=== PATIENT | male | born 1960 | race Caucasian/White ===

== ENCOUNTER → 2018-08-16 10:26 | Outpatient (CLI) | payer OTHER, SELFPAY ==
[2018-08-16 11:18] LABS: BUN Creatinine Ratio 22.2 (6-22); Blood Urea Nitrogen 20 mg/dL (9-20); Calcium 9.7 mg/dL (8.4-10.2); Carbon Dioxide 30 mmol/L (22-32); Chloride 102 mmol/L (98-107); Estimated Glomerular Filt Rate > 60.0 mL/min (>60); Glucose 103 mg/dL (70-100); HEMOLYSIS < 15 (0-50); Potassium 4.2 mmol/L (3.4-5.1); Sodium 142 mmol/L (137-145)
== END ==
PROVIDERS: Visit Provider Internal Medicine
DX: I10 Essential (primary) hypertension (principal)
CPT/HCPCS: 36415; 80048

== ENCOUNTER → 2019-01-12 10:46 | Outpatient (CLI) | payer OTHER, SELFPAY ==
[2019-01-12 12:26] LABS: Add Manual Diff / Slide Review NO; Basophils Absolute Auto 0 /uL (0-100); Basophils Percent Auto 0.7 % (0-2); Eosinophils Absolute Auto 100 /uL (0-450); Eosinophils Percent Auto 1.3 % (2-4); Hematocrit 42.6 % (41-53); Hemoglobin 14.6 g/dL (13.5-17.5); Lymphocytes Absolute Auto 1000 /uL (1100-4500); Lymphocytes Percent Auto 22.6 % (25-40); Mean Corpuscular HGB Conc 34.3 % (30-36); Mean Corpuscular Hemoglobin 33.1 PG (26-34); Mean Corpuscular Volume 96.6 fL (80-100); Monocytes Absolute Auto 500 /uL (0-900); Monocytes Percent Auto 10.9 % (3-14); Neutrophils Absolute Auto 2700 /uL (1500-7000); Neutrophils Percent Auto 64.5 % (50-75); Platelet Count 379 X10^3/uL (150-400); Red Blood Cell Count 4.41 X10^6/uL (4.5-5.9); Red Cell Distribution Width 13.1 % (11.6-14.8); White Blood Cell Count 4.2 X10^3/uL (4.5-11.0)
[2019-01-12 12:44] LABS: Alanine Aminotransferase 29 IU/L (21-72); Albumin 4.7 g/dL (3.5-5.0); Albumin Globulin Ratio 1.8 (1.0-2.8); Alkaline Phosphatase 51 U/L (38-126); Aspartate Aminotransferase 32 IU/L (17-59); BUN Creatinine Ratio 15.7 (6-22); Bilirubin Total 0.8 mg/dL (0.2-1.3); Blood Urea Nitrogen 11 mg/dL (9-20); Calcium 9.2 mg/dL (8.4-10.2); Carbon Dioxide 29 mmol/L (22-32); Chloride 92 mmol/L (98-107); Cholesterol 180 mg/dL (140-199); Estimated Glomerular Filt Rate > 60.0 mL/min (>60); Globulin 2.6 g/dL (1.7-4.1); Glucose 92 mg/dL (70-100); HDL Cholesterol 85 mg/dL (40-60); HEMOLYSIS < 15 (0-50); LDL Cholesterol Calculated 87 mg/dL (<100); Potassium 3.9 mmol/L (3.4-5.1); Sodium 132 mmol/L (137-145); Total Protein 7.3 g/dL (6.3-8.2); Triglycerides 40 mg/dL (35-150)
[2019-01-12 13:02] LABS: Hemoglobin A1C% w Est Avg Glu 5.1 % (4.0-6.0)
== END ==
PROVIDERS: Family Provider Family Medicine; PCP Family Medicine; Visit Provider Psychiatry & Neurology Psychiatry
DX: Z79.899 Other long term (current) drug therapy (principal)
CPT/HCPCS: 36415; 80053; 80061; 80164; 83036; 85025

== ENCOUNTER → 2021-12-15 09:23 | Outpatient (CLI) | payer OTHER, SELFPAY ==
[2021-12-15 11:17] LABS: Hematocrit 44.8 % (41-53); Hemoglobin 15.5 g/dL (13.5-17.5); Mean Corpuscular HGB Conc 34.6 % (30-36); Mean Corpuscular Hemoglobin 33.3 PG (26-34); Platelet Count 457 X10^3/uL (150-400); Red Blood Cell Count 4.67 X10^6/uL (4.5-5.9); White Blood Cell Count 5.6 X10^3/uL (4.5-11.0)
[2021-12-15 11:39] LABS: Hemoglobin A1C% w Est Avg Glu 5.3 % (4.0-6.0)
[2021-12-15 11:55] LABS: Alanine Aminotransferase 19 IU/L (<50); Albumin Globulin Ratio 1.5 (1.0-2.8); Alkaline Phosphatase 78 U/L (38-126); Aspartate Aminotransferase 31 IU/L (17-59); Bilirubin Total 0.9 mg/dL (0.2-1.3); Blood Urea Nitrogen 17 mg/dL (9-20); Calcium 10.1 mg/dL (8.4-10.2); Carbon Dioxide 26 mmol/L (22-32); Chloride 104 mmol/L (98-107); Cholesterol 276 mg/dL (140-199); Estimated Glomerular Filt Rate > 60.0 mL/min (>60); Globulin 3.3 g/dL (1.7-4.1); Glucose 92 mg/dL (80-110); HDL Cholesterol 73 mg/dL (40-60); HEMOLYSIS < 15 (0-50); LDL Cholesterol Calculated 180 mg/dL (<100); Potassium 4.1 mmol/L (3.4-5.1); Sodium 140 mmol/L (137-145); Total Protein 8.3 g/dL (6.3-8.2); Triglycerides 113 mg/dL (35-150)
[2021-12-15 11:59] LABS: Microalbumin Urine Random 3.6 mg/dL (0-1.6)
[2021-12-15 12:15] LABS: Free T3, Triiodothyronine Free 3.85 pg/mL (2.77-5.27); Free T4, Direct Thyroxine 1.06 ng/dL (0.78-2.19)
[2021-12-15 12:25] LABS: Prostate Specific Antigen 1.74 ng/mL (0.10-4.00)
[2021-12-15 12:28] LABS: Thyroid Stimulating Hormone 1.69 uIU/mL (0.47-4.68)
== END ==
PROVIDERS: PCP Nurse Practitioner; Referring Provider Nurse Practitioner; Visit Provider Nurse Practitioner
DX: Z00.00 Encounter for general adult medical examination without abnormal findings (principal); I10 Essential (primary) hypertension
CPT/HCPCS: 36415; 80053; 80061; 82043; 82570; 83036; 84153; 84439; 84443; 84481; 85027

== ENCOUNTER 2021-12-29 10:30 | Outpatient (RCR) | payer OTHER, SELFPAY ==
--- NOTE | 2021-12-21 18:23 | PT.OIE ---
Current Diagnoses Pain in right shoulder (12/21/21) Pain in left shoulder (12/21/21) Abnormal posture (12/21/21) Weakness (12/21/21) Past Medical History (Last Updated 12/16/21 @ 14:22 by RORY Case) Colon cancer screening Left elbow pain Strain of muscle(s) and tendon(s) of the rotator cuff of left shoulder, sequela Visit Care Team Role Provider Type RORY Case Attending Provider Advanced Front Office Associate Family Provider Primary Care Provider Referring Provider Specialty: Family Practice Address: [address] [place] [address] Email: [email or web address] Physical Therapy Initial Evaluation PT-OP-A Visit Information Start: 12/17/21 19:01 Freq: Status: Active Protocol: Document 12/21/21 09:44 [facility] (Rec: 12/21/21 12:23 [facility] [id number]) Out-Patient Physical Therapy Visit Information Visit Information Visit Type Initial Evaluation Visit Start Time 10:36 Visit Stop Time 11:20 Total Visit Minutes 44 Visit Number 1 Number of MENTAL HEALTH PROGRAM DIRECTOR Visits 0 PT-OP-B Current Condition Start: 12/17/21 19:01 Freq: Status: Active Protocol: Document 12/21/21 09:44 [facility] (Rec: 12/21/21 12:23 [facility] [id number]) Current Condition History of Current Condition Current Complaints B shoulder pain History of Current Condition Pt reports B shoulder pain and notes he has had 2 cortizone shots in L shoulder and one in L elbow. He thinks his R shoulder started hurting from throwing rocks for puppy. 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 he would breath on his R side d/t his L shoulder. He has been running and hiking mostly and avoiding activities that require UEs. Pt had X-ray w/ ortho about 2 years ago that said no arthritis. He has not done PT before or any other treatments for the shoulder. R shouler started about 2-3 months ago. He starts fishing in Aug and went almost a month straight and started then and then got worse in Sep. L shoulder pain has been bothering him for 5 years. He does not know what made it worse recently. Its been about 1.5 years since he did any activities that stress the shoulder d/t pain. L elbow pain has been okay since the injection 2 years ago. R elbow is sometimes sore. Denies numbness or tingling in UEs. 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 He uses R arm on throttle when driving and it hurts. Pt reports R shoulder is his pain issue. Pt reports no nec pain , just tightness. Pt reports he has been surfing recently and that has been tough on his shoulders, but hasn't been this year d/t R shoulder starting. Prior Treatments and Tests Xrays, cortizone shots on L shoulder & L elbow Future Testing and Treatments Planned plans to call to schedule w/ ortho Treatment Goals Patient/Caregiver Goals Return to UE supports (mtn biking, climbing, SUP & swim), PT-OP-C Subjective Start: 12/17/21 19:01 Freq: Status: Active Protocol: Document 12/21/21 09:44 [facility] ([facility] 12[facility]21/21 12[facility]23 [id number] Patient Questionnaires Quick Dash- Upper Extremity Quick Dash UE Score 40.9 OP-PT Pain Assessment Location B shoulders Pain Location Details post and lat B shoulder Intensity 3 Scale Used worst 7 Description Sharp,With Movement Frequency Constant Other Pain Aggravating Factors Driving boat, flex/abd, getting coat on, throwing rocks, UE sports Pain Alleviating Factors Heat PT-OP-F Manual Assessment Start: 12/17/21 19:01 Freq: Status: Active Protocol: Document 12/21/21 09:44 [facility] (Rec: 12/21/21 12:23 [facility] [id number]) Manual Assessments Soft Tissue Assessment Soft Tissue Mobility Assessment tenderness mild supraspinatus tendon, UT & LS tight Joint Mobility Assessment Joint Mobility Assessment B scap winging & fwd shoulders & head PT-OP-J Posture/Palpation/Skin Start: 12/17/21 19:01 Freq: Status: Active Protocol: Document 12/21/21 09:44 [facility] (Rec: 12/21/21 12:23 [facility] [id number]) Posture Evaluation Kamran Postural Classification System Elbow Flexion Test 0 PT-OP-K Range of Motion Start: 12/17/21 19:01 Freq: Status: Active Protocol: Document 12/21/21 09:44 [facility] (Rec: 12/21/21 12:23 [facility] [id number]) Shoulder Goniometric Range of Motion Shoulder Right Active Flexion 150 Extension 68 Abduction 165 External Rotation at 90 degrees 95 Abduction External Rotation at 0 degrees Abduction 79 Internal Rotation Behind Back (text) T9 Comments pain flex, abd, ERs, IR behind back Left Active Flexion 145 Extension 68 Abduction 173 External Rotation at 90 degrees 97 Abduction External Rotation at 0 degrees Abduction 75 Internal Rotation Behind Back (text) T12 Comments some discomfort w/rotations PT-OP-L Special Tests Start: 12/17/21 19:01 Freq: Status: Active Protocol: Document 12/21/21 09:44 [facility] (Rec: 12/21/21 12:23 [facility] [id number]) Special Tests Shoulder Special Tests Sulcus Test Results neg B Speed's Biceps Test Results neg L, pain R w/both obiens and speeds Neer Impingement Test Results positive R, neg L [place] Test Test Results neg L, pain R w/both obiens and speeds Goel Luisito Impingement Test Results positive R, neg L Empty Can Test Results neg L, pain R AC Joint Compression Test Results neg B PT-OP-M Strength Start: 12/17/21 19:01 Freq: Status: Active Protocol: Document 12/21/21 09:44 [facility] (Rec: 12/21/21 12:23 [facility] [id number]) Shoulder Strength Shoulder Manual Muscle Testing Right Flexion 4- Good- Extension 4 Good Abduction (C5) 4- Good- External Rotation 4- Good- Internal Rotation 4 Good Left Flexion 4 Good Extension 4 Good Abduction (C5) 4 Good External Rotation 4- Good- Internal Rotation 4+ Good+ PT-OP-Q Treatments Start: 12/17/21 19:01 Freq: Status: Active Protocol: Document 12/21/21 09:44 [facility] (Rec: 12/21/21 12:23 [facility] [id number]) Therapeutic Exercises Standing Exercises ER Side bilateral Equipment Used L1 Reps/Minutes 2x10 Ext Side bilateral Equipment Used L2 Reps/Minutes 2x10 PT-OP-T Assessment and Plan Start: 12/17/21 19:01 Freq: Status: Active Protocol: Document 12/21/21 09:44 [facility] (Rec: 12/21/21 12:23 [facility] [id number]) Physical Therapy Assessment Rehab Potential Rehabilitation Potential Good Evaluation Complexity Number of Personal Factors/Comorbidities 3 or More Number of Body Systems Impaired 4 or More Clinical Presentation at Evaluation Evolving Impairments Impairments Activity Tolerance,Functional Activities,Functional Mobility ,Pain,Posture,ROM,Soft Tissue Mobility,Strength Goals ROM Halfway Goal (LTG) Pt will be able to go through all B shoulder ROM w/o inc pain. LTG Duration 02/18/22 strength Short Term Goal (STG) Pt will be indep w/HEP for shoulder/cervical/core ROM & stength. STG Duration 01/18/22 Halfway Goal (LTG) Pt will have at least 3/5 EFT and 5/5 BUE MMT to show improved stability and strength in order to allow pt to do typical sporting activities. LTG Duration 02/18/22 pain Impairment 3/10 pain at rest Short Term Goal (STG) Pt will report no pain at rest STG Duration 01/18/22 Cutting Tool Sharpener Goal (LTG) Pt will be able to drive the boat, do UE dressing, UE sports and throwing for dog w/ o inc pain. LTG Duration 02/18/22 quick dash Impairment 40.9 Short Term Goal (STG) Pt will improve quick dash score to no higher than 30 to show improved functional ability. STG Duration Halfway Goal (LTG) Pt will improve quick dash score to no higher than 10 to show improved functional ability. LTG Duration 02/18/22 Assessment Summary Assessment Pt presents w/recent R shoulder pain in past couple of months and chronic (years ago starting) L shoulder pain that limits his ability to do work, ADLs, and recreational activties without increased pain. His ROM has minor limits , but R shoulder ROM in most planes is painful and pt has weakness w/BUE strength testing and EFT w/pain during MMT. 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 He would benefit from skilled PT to work on B shoulder stability, thoracic mobility and stability, ROM and improve movement mechanics to dec pain. Physical Therapy Plan Frequency and Duration Frequency of Treatment 1-2x/week Duration of Treatment 2 months Plan of Care Start Date 12/21/21 Plan of Care End Date 02/18/22 Therapeutic Interventions Therapeutic Interventions Aquatic Therapy,Home Exercise Program,Joint Mobilizations, Manual Therapy,Neuromuscular Re-education,Patient/Caregiver Education,Self-Care/Home Management,Soft Tissue Mobilization,Taping, Therapeutic Activities, Therapeutic Exercises Modalities Cold Pack/Ice Massage,Electric Stimulation,Hot Packs, Infrared Therapy,Ultrasound Next Visit Focus/Plan Next Note Type Treatment Note Next Visit Plan review exercises from last session, check neural tension, add wall posture & prone Habd & 90/90 ER, PNF of scap, STM to UT/LS, joint mobs R shoulder
--- NOTE | 2021-12-21 18:23 | PT.OPPOC ---
Physical, Occupational & Speech Therapy At [facility] Current Diagnoses Pain in right shoulder (12/21/21) Pain in left shoulder (12/21/21) Abnormal posture (12/21/21) Weakness (12/21/21) Visit Care Team Role Provider Type RORY Case Attending Provider Advanced Risk Consultant Family Provider Primary Care Provider Referring Provider Specialty: [facility] Address: [address] [place] [address], [facility] Email: [email or web address] Plan Of Care PT-OP-T Assessment and Plan Start: 12/17/21 19:01 Freq: Status: Active Protocol: Document 12/21/21 09:44 [facility] (Rec: 12/21/21 12:23 [facility] [id number]) Physical Therapy Assessment Rehab Potential Rehabilitation Potential Good Evaluation Complexity Number of Personal Factors/Comorbidities 3 or More Number of Body Systems Impaired 4 or More Clinical Presentation at Evaluation Evolving Impairments Impairments Activity Tolerance,Functional Activities,Functional Mobility ,Pain,Posture,ROM,Soft Tissue Mobility,Strength Goals ROM Detention Goal (LTG) Pt will be able to go through all B shoulder ROM w/o inc pain. LTG Duration 02/18/22 strength Short Term Goal (STG) Pt will be indep w/HEP for shoulder/cervical/core ROM & stength. STG Duration 01/18/22 Detention Goal (LTG) Pt will have at least 3/5 EFT and 5/5 BUE MMT to show improved stability and strength in order to allow pt to do typical sporting activities. LTG Duration 02/18/22 pain Impairment 3/10 pain at rest Short Term Goal (STG) Pt will report no pain at rest STG Duration 01/18/22 Detention Goal (LTG) Pt will be able to drive the boat, do UE dressing, UE sports and throwing for dog w/ o inc pain. LTG Duration 02/18/22 quick dash Impairment 40.9 Short Term Goal (STG) Pt will improve quick dash score to no higher than 30 to show improved functional ability. STG Duration Wind Energy Mechanic Goal (LTG) Pt will improve quick dash score to no higher than 10 to show improved functional ability. LTG Duration 02/18/22 Assessment Summary Assessment Pt presents w/recent R shoulder pain in past couple of months and chronic (years ago starting) L shoulder pain that limits his ability to do work, ADLs, and recreational activties without increased pain. His ROM has minor limits , but R shoulder ROM in most planes is painful and pt has weakness w/BUE strength testing and EFT w/pain during MMT. 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 He would benefit from skilled PT to work on B shoulder stability, thoracic mobility and stability, ROM and improve movement mechanics to dec pain. Physical Therapy Plan Frequency and Duration Frequency of Treatment 1-2x/week Duration of Treatment 2 months Plan of Care Start Date 12/21/21 Plan of Care End Date 02/18/22 Therapeutic Interventions Therapeutic Interventions Aquatic Therapy,Home Exercise Program,Joint Mobilizations, Manual Therapy,Neuromuscular Re-education,Patient/Caregiver Education,Self-Care/Home Management,Soft Tissue Mobilization,Taping, Therapeutic Activities, Therapeutic Exercises Modalities Cold Pack/Ice Massage,Electric Stimulation,Hot Packs, Infrared Therapy,Ultrasound Next Visit Focus/Plan Next Note Type Treatment Note Next Visit Plan review exercises from last session, check neural tension, add wall posture & prone Habd & 90/90 ER, PNF of scap, STM to UT/LS, joint mobs R shoulder Plan of Care Dates Plan of Care Start Date 12/21/21 Plan of Care End Date 02/18/22 Electronically Signed by: Milagros Aparicio, PT 12/21/21 [id number] Please Sign and Return: I have reviewed this Plan of Care and certify that the skilled therapy services above are required to meet the patient?s needs. Physician Signature Date Printed Name and Credentials Clinical Instructor Signature Printed Name and Credentials
--- NOTE | 2021-12-24 12:30 | PT.OTN ---
Current Diagnoses Pain in right shoulder (12/24/21) Pain in left shoulder (12/24/21) Abnormal posture (12/24/21) Weakness (12/24/21) Physical Therapy Treatment Note PT-OP-A Visit Information Start: 12/17/21 19:01 Freq: Status: Active Protocol: Document 12/24/21 10:34 [facility] (Rec: 12/24/21 12:29 [facility] [id number]) Out-Patient Physical Therapy Visit Information Visit Information Visit Type Treatment Note Visit Start Time 10:35 Visit Stop Time 11:17 Total Visit Minutes 42 Visit Number 2 Number of HYPO SPLASHER Visits 0 PT-OP-B Current Condition Start: 12/17/21 19:01 Freq: Status: Active Protocol: Document 12/21/21 09:44 [facility] (Rec: 12/21/21 12:23 [facility] [id number]) Current Condition History of Current Condition Current Complaints B shoulder pain History of Current Condition Pt reports B shoulder pain and notes he has had 2 cortizone shots in L shoulder and one in L elbow. He thinks his R shoulder started hurting from throwing rocks for puppy. 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 he would breath on his R side d/t his L shoulder. He has been running and hiking mostly and avoiding activities that require UEs. Pt had X-ray w/ ortho about 2 years ago that said no arthritis. He has not done PT before or any other treatments for the shoulder. R shouler started about 2-3 months ago. He starts fishing in Aug and went almost a month straight and started then and then got worse in Sep. L shoulder pain has been bothering him for 5 years. He does not know what made it worse recently. Its been about 1.5 years since he did any activities that stress the shoulder d/t pain. L elbow pain has been okay since the injection 2 years ago. R elbow is sometimes sore. Denies numbness or tingling in UEs. 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 He uses R arm on throttle when driving and it hurts. Pt reports R shoulder is his pain issue. Pt reports no nec pain , just tightness. Pt reports he has been surfing recently and that has been tough on his shoulders, but hasn't been this year d/t R shoulder starting. Prior Treatments and Tests Xrays, cortizone shots on L shoulder & L elbow Future Testing and Treatments Planned plans to call to schedule w/ ortho Treatment Goals Patient/Caregiver Goals Return to UE supports (mtn biking, climbing, SUP & swim), PT-OP-C Subjective Start: 12/17/21 19:01 Freq: Status: Active Protocol: Document 12/24/21 10:34 [facility] (Rec: 12/24/21 12:29 [facility] [id number]) OP-PT Subjective Patient Comments Patient Comments Pt notes compliance w/HEP. Notes R shoulder is sore PT-OP-F Manual Assessment Start: 12/17/21 19:01 Freq: Status: Active Protocol: Document 12/21/21 09:44 [facility] (Rec: 12/21/21 12:23 [facility] [id number]) Manual Assessments Soft Tissue Assessment Soft Tissue Mobility Assessment tenderness mild supraspinatus tendon, UT & LS tight Joint Mobility Assessment Joint Mobility Assessment B scap winging & fwd shoulders & head PT-OP-J Posture/Palpation/Skin Start: 12/17/21 19:01 Freq: Status: Active Protocol: Document 12/21/21 09:44 [facility] (Rec: 12/21/21 12:23 [facility] [id number]) Posture Evaluation Kamran Postural Classification System Elbow Flexion Test 0 PT-OP-K Range of Motion Start: 12/17/21 19:01 Freq: Status: Active Protocol: Document 12/21/21 09:44 [facility] (Rec: 12/21/21 12:23 [facility] [id number]) Shoulder Goniometric Range of Motion Shoulder Right Active Flexion 150 Extension 68 Abduction 165 External Rotation at 90 degrees 95 Abduction External Rotation at 0 degrees Abduction 79 Internal Rotation Behind Back (text) T9 Comments pain flex, abd, ERs, IR behind back Left Active Flexion 145 Extension 68 Abduction 173 External Rotation at 90 degrees 97 Abduction External Rotation at 0 degrees Abduction 75 Internal Rotation Behind Back (text) T12 Comments some discomfort w/rotations PT-OP-L Special Tests Start: 12/17/21 19:01 Freq: Status: Active Protocol: Document 12/21/21 09:44 [facility] (Rec: 12/21/21 12:23 [facility] [id number]) Special Tests Shoulder Special Tests Sulcus Test Results neg B Speed's Biceps Test Results neg L, pain R w/both obiens and speeds Neer Impingement Test Results positive R, neg L [place] Test Test Results neg L, pain R w/both obiens and speeds Goel Luisito Impingement Test Results positive R, neg L Empty Can Test Results neg L, pain R AC Joint Compression Test Results neg B PT-OP-M Strength Start: 12/17/21 19:01 Freq: Status: Active Protocol: Document 12/21/21 09:44 [facility] (Rec: 12/21/21 12:23 [facility] [id number]) Shoulder Strength Shoulder Manual Muscle Testing Right Flexion 4- Good- Extension 4 Good Abduction (C5) 4- Good- External Rotation 4- Good- Internal Rotation 4 Good Left Flexion 4 Good Extension 4 Good Abduction (C5) 4 Good External Rotation 4- Good- Internal Rotation 4+ Good+ PT-OP-Q Treatments Start: 12/17/21 19:01 Freq: Status: Active Protocol: Document 12/24/21 10:34 [facility] (Rec: 12/24/21 12:29 [facility] [id number]) Therapeutic Exercises Prone Exercises HAbd Prone Exercise Name over tball Side bilateral Reps/Minutes 2x15 Comments max cues for scap and neck position Standing Exercises wall posture Standing Exercise Name work on roll up w/scap set & shoulder ext Side bilateral Reps/Minutes 5 min ER Side bilateral Equipment Used L1 Reps/Minutes 2x10 Ext Side bilateral Equipment Used L2 Reps/Minutes 2x10 Manual Therapy Treatment Soft Tissue Mobilization pec Body Location R Mobilization Type Rolling,Strumming,Sustained Pressure Intensity/Depth Moderate Body Position Supine Comments w/IR/ER UT/LS Body Location R Mobilization Type Rolling,Strumming Intensity/Depth Moderate Body Position Supine Joint Mobilizations GH Joint R Direction distraction & post FM Grade III Self-Care/Home Management Treatment Education Other Education edu re: shoulder mechanics and importance of neck position, edu to not try climbing yet even easy things PT-OP-T Assessment and Plan Start: 12/17/21 19:01 Freq: Status: Active Protocol: Document 12/24/21 10:34 [facility] (Rec: 12/24/21 12:29 [facility] [id number]) Physical Therapy Assessment Goals ROM Fpc Goal (LTG) Pt will be able to go through all B shoulder ROM w/o inc pain. LTG Duration 02/18/22 strength Short Term Goal (STG) Pt will be indep w/HEP for shoulder/cervical/core ROM & stength. STG Duration 01/18/22 Fpc Goal (LTG) Pt will have at least 3/5 EFT and 5/5 BUE MMT to show improved stability and strength in order to allow pt to do typical sporting activities. LTG Duration 02/18/22 pain Impairment 3/10 pain at rest Short Term Goal (STG) Pt will report no pain at rest STG Duration 01/18/22 Bonded Strand Operator Goal (LTG) Pt will be able to drive the boat, do UE dressing, UE sports and throwing for dog w/ o inc pain. LTG Duration 02/18/22 quick dash Impairment 40.9 Short Term Goal (STG) Pt will improve quick dash score to no higher than 30 to show improved functional ability. STG Duration Fpc Goal (LTG) Pt will improve quick dash score to no higher than 10 to show improved functional ability. LTG Duration 02/18/22 Assessment Summary Assessment Neg on all R neural tension tests. Pt reports relief after session today and had improved PROM IR. He required max cues for neck and scap position during exercises. Physical Therapy Plan Frequency and Duration Frequency of Treatment 1-2x/week Duration of Treatment 2 months Plan of Care Start Date 12/21/21 Plan of Care End Date 02/18/22 Next Visit Focus/Plan Next Note Type Treatment Note Next Visit Plan review exercises, PNF scap & stm & R shoulder mobs
--- NOTE | 2021-12-29 15:10 | PT.OTN ---
Current Diagnoses Pain in right shoulder (12/29/21) Pain in left shoulder (12/29/21) Abnormal posture (12/29/21) Weakness (12/29/21) Physical Therapy Treatment Note PT-OP-A Visit Information Start: 12/17/21 19:01 Freq: Status: Active Protocol: Document 12/29/21 10:36 [facility] (Rec: 12/29/21 15:10 [facility] [id number]) Out-Patient Physical Therapy Visit Information Visit Information Visit Type Treatment Note Visit Start Time 10:36 Visit Stop Time 11:18 Total Visit Minutes 42 Visit Number 3 Number of [facility] [place] Visits 0 PT-OP-B Current Condition Start: 12/17/21 19:01 Freq: Status: Active Protocol: Document 12/21/21 09:44 [facility] (Rec: 12/21/21 12:23 [facility] [id number]) Current Condition History of Current Condition Current Complaints B shoulder pain History of Current Condition Pt reports B shoulder pain and notes he has had 2 cortizone shots in L shoulder and one in L elbow. He thinks his R shoulder started hurting from throwing rocks for puppy. 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 he would breath on his R side d/t his L shoulder. He has been running and hiking mostly and avoiding activities that require UEs. Pt had X-ray w/ ortho about 2 years ago that said no arthritis. He has not done PT before or any other treatments for the shoulder. R shouler started about 2-3 months ago. He starts fishing in Aug and went almost a month straight and started then and then got worse in Sep. L shoulder pain has been bothering him for 5 years. He does not know what made it worse recently. Its been about 1.5 years since he did any activities that stress the shoulder d/t pain. L elbow pain has been okay since the injection 2 years ago. R elbow is sometimes sore. Denies numbness or tingling in UEs. 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 He uses R arm on throttle when driving and it hurts. Pt reports R shoulder is his pain issue. Pt reports no nec pain , just tightness. Pt reports he has been surfing recently and that has been tough on his shoulders, but hasn't been this year d/t R shoulder starting. Prior Treatments and Tests Xrays, cortizone shots on L shoulder & L elbow Future Testing and Treatments Planned plans to call to schedule w/ ortho Treatment Goals Patient/Caregiver Goals Return to UE supports (mtn biking, climbing, SUP & swim), PT-OP-C Subjective Start: 12/17/21 19:01 Freq: Status: Active Protocol: Document 12/29/21 10:36 [facility] (Rec: 12/29/21 15:10 [facility] [id number]) OP-PT Subjective Patient Comments Patient Comments Pt reports doing HEP but unsure if doing it right PT-OP-F Manual Assessment Start: 12/17/21 19:01 Freq: Status: Active Protocol: Document 12/21/21 09:44 [facility] (Rec: 12/21/21 12:23 [facility] [id number]) Manual Assessments Soft Tissue Assessment Soft Tissue Mobility Assessment tenderness mild supraspinatus tendon, UT & LS tight Joint Mobility Assessment Joint Mobility Assessment B scap winging & fwd shoulders & head PT-OP-J Posture/Palpation/Skin Start: 12/17/21 19:01 Freq: Status: Active Protocol: Document 12/21/21 09:44 [facility] (Rec: 12/21/21 12:23 [facility] [id number]) Posture Evaluation Kamran Postural Classification System Elbow Flexion Test 0 PT-OP-K Range of Motion Start: 12/17/21 19:01 Freq: Status: Active Protocol: Document 12/21/21 09:44 [facility] (Rec: 12/21/21 12:23 [facility] [id number]) Shoulder Goniometric Range of Motion Shoulder Right Active Flexion 150 Extension 68 Abduction 165 External Rotation at 90 degrees 95 Abduction External Rotation at 0 degrees Abduction 79 Internal Rotation Behind Back (text) T9 Comments pain flex, abd, ERs, IR behind back Left Active Flexion 145 Extension 68 Abduction 173 External Rotation at 90 degrees 97 Abduction External Rotation at 0 degrees Abduction 75 Internal Rotation Behind Back (text) T12 Comments some discomfort w/rotations PT-OP-L Special Tests Start: 12/17/21 19:01 Freq: Status: Active Protocol: Document 12/21/21 09:44 [facility] (Rec: 12/21/21 12:23 [facility] [id number]) Special Tests Shoulder Special Tests Sulcus Test Results neg B Speed's Biceps Test Results neg L, pain R w/both obiens and speeds Neer Impingement Test Results positive R, neg L [place] Test Test Results neg L, pain R w/both obiens and speeds Goel Luisito Impingement Test Results positive R, neg L Empty Can Test Results neg L, pain R AC Joint Compression Test Results neg B PT-OP-M Strength Start: 12/17/21 19:01 Freq: Status: Active Protocol: Document 12/21/21 09:44 [facility] (Rec: 12/21/21 12:23 [facility] [id number]) Shoulder Strength Shoulder Manual Muscle Testing Right Flexion 4- Good- Extension 4 Good Abduction (C5) 4- Good- External Rotation 4- Good- Internal Rotation 4 Good Left Flexion 4 Good Extension 4 Good Abduction (C5) 4 Good External Rotation 4- Good- Internal Rotation 4+ Good+ PT-OP-Q Treatments Start: 12/17/21 19:01 Freq: Status: Active Protocol: Document 12/29/21 10:36 [facility] (Rec: 12/29/21 15:10 [facility] [id number]) Therapeutic Exercises Supine Exercises foam roll Supine Exercise Name // over: HABbd hold 2x30 sec; flex AAROM x10 Comments also perpendicular over tspine ext Prone Exercises HAbd Prone Exercise Name over tball Side bilateral Reps/Minutes 20 Comments max cues for scap and neck position Standing Exercises pec stretch Standing Exercise Name 1. arms straight in door 2. corner 90/90 Side bilateral Reps/Minutes 30 sec ea wall posture Standing Exercise Name work on roll up w/scap set & shoulder ext Side bilateral Reps/Minutes 2 min ER Standing Exercise Name agaisnt wall w/focus on no lumbar ext Side bilateral Equipment Used L1 Reps/Minutes 2x10 Ext Standing Exercise Name one at a time against wall for 2nd set Side bilateral Equipment Used L1 Reps/Minutes 2x10 Comments 1st set w/2 pull back Manual Therapy Treatment Soft Tissue Mobilization pec Body Location R Mobilization Type Rolling,Strumming,Sustained Pressure Intensity/Depth Moderate Body Position Supine UT/LS Body Location RUT LS & scalenes Mobilization Type Rolling,Strumming Intensity/Depth Moderate Body Position Supine Joint Mobilizations ribs Comments 1. rib 1 caudal FM R 2. rib 2 & 3 AP & caudal FM 3. rib 5 caudal FM thoracic Comments 1. T 5&7 transverse L FM PT-OP-T Assessment and Plan Start: 12/17/21 19:01 Freq: Status: Active Protocol: Document 12/29/21 10:36 [facility] (Rec: 12/29/21 15:10 [facility] [id number]) Physical Therapy Assessment Goals ROM Local Bulk Driver Goal (LTG) Pt will be able to go through all B shoulder ROM w/o inc pain. LTG Duration 02/18/22 strength Short Term Goal (STG) Pt will be indep w/HEP for shoulder/cervical/core ROM & stength. STG Duration 01/18/22 Group Home Goal (LTG) Pt will have at least 3/5 EFT and 5/5 BUE MMT to show improved stability and strength in order to allow pt to do typical sporting activities. LTG Duration 02/18/22 pain Impairment 3/10 pain at rest Short Term Goal (STG) Pt will report no pain at rest STG Duration 01/18/22 Group Home Goal (LTG) Pt will be able to drive the boat, do UE dressing, UE sports and throwing for dog w/ o inc pain. LTG Duration 02/18/22 quick dash Impairment 40.9 Short Term Goal (STG) Pt will improve quick dash score to no higher than 30 to show improved functional ability. STG Duration Group Home Goal (LTG) Pt will improve quick dash score to no higher than 10 to show improved functional ability. LTG Duration 02/18/22 Assessment Summary Assessment Pt had improved scap dep and retraction after manual treatmenta nd improved awareness but it took alot of review and cueing for exercsies. He will be fishing and unabl to attend appointments for a few weeks. He was given stretches, taught to roll out and given review for shoulder and cervical strengthening exercsies. Physical Therapy Plan Frequency and Duration Frequency of Treatment 1-2x/week Duration of Treatment 2 months Plan of Care Start Date 12/21/21 Plan of Care End Date 02/18/22 Next Visit Focus/Plan Next Note Type Treatment Note Next Visit Plan review exercises, PNF scap & stm & R shoulder mobs
--- NOTE | 2022-04-01 16:54 | PT.OPDS ---
Current Diagnoses Pain in right shoulder (12/29/21) Pain in left shoulder (12/29/21) Abnormal posture (12/29/21) Weakness (12/29/21) Visit Care Team Role Provider Type RORY Case Attending Provider Advanced Boilermaker'S Assistant Family Provider Primary Care Provider Referring Provider Specialty: Family Practice Address: [address] [place] [address], [id number] Email: [email or web address] Visit Number Visit Number 3 Discharge Summary PT-OP-B Current Condition Start: 12/17/21 19:01 Freq: Status: Active Protocol: Document 12/21/21 09:44 [facility] (Rec: 12/21/21 12:23 [facility] [id number]) Current Condition History of Current Condition Current Complaints B shoulder pain History of Current Condition Pt reports B shoulder pain and notes he has had 2 cortizone shots in L shoulder and one in L elbow. He thinks his R shoulder started hurting from throwing rocks for puppy. 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 he would breath on his R side d/t his L shoulder. He has been running and hiking mostly and avoiding activities that require UEs. Pt had X-ray w/ ortho about 2 years ago that said no arthritis. He has not done PT before or any other treatments for the shoulder. R shouler started about 2-3 months ago. He starts fishing in Aug and went almost a month straight and started then and then got worse in Sep. L shoulder pain has been bothering him for 5 years. He does not know what made it worse recently. Its been about 1.5 years since he did any activities that stress the shoulder d/t pain. L elbow pain has been okay since the injection 2 years ago. R elbow is sometimes sore. Denies numbness or tingling in UEs. 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 He uses R arm on throttle when driving and it hurts. Pt reports R shoulder is his pain issue. Pt reports no nec pain , just tightness. Pt reports he has been surfing recently and that has been tough on his shoulders, but hasn't been this year d/t R shoulder starting. Prior Treatments and Tests Xrays, cortizone shots on L shoulder & L elbow Future Testing and Treatments Planned plans to call to schedule w/ ortho Treatment Goals Patient/Caregiver Goals Return to UE supports (mtn biking, climbing, SUP & swim), PT-OP-C Subjective Start: 12/17/21 19:01 Freq: Status: Active Protocol: Document 12/29/21 10:36 [facility] (Rec: 12/29/21 15:10 [facility] [id number]) OP-PT Subjective Patient Comments Patient Comments Pt reports doing HEP but unsure if doing it right PT-OP-F Manual Assessment Start: 12/17/21 19:01 Freq: Status: Active Protocol: Document 12/21/21 09:44 [facility] (Rec: 12/21/21 12:23 [facility] [id number]) Manual Assessments Soft Tissue Assessment Soft Tissue Mobility Assessment tenderness mild supraspinatus tendon, UT & LS tight Joint Mobility Assessment Joint Mobility Assessment B scap winging & fwd shoulders & head PT-OP-J Posture/Palpation/Skin Start: 12/17/21 19:01 Freq: Status: Active Protocol: Document 12/21/21 09:44 [facility] (Rec: 12/21/21 12:23 [facility] [id number]) Posture Evaluation Kamran Postural Classification System Elbow Flexion Test 0 PT-OP-K Range of Motion Start: 12/17/21 19:01 Freq: Status: Active Protocol: Document 12/21/21 09:44 [facility] (Rec: 12/21/21 12:23 [facility] [id number]) Shoulder Goniometric Range of Motion Shoulder Right Active Flexion 150 Extension 68 Abduction 165 External Rotation at 90 degrees 95 Abduction External Rotation at 0 degrees Abduction 79 Internal Rotation Behind Back (text) T9 Comments pain flex, abd, ERs, IR behind back Left Active Flexion 145 Extension 68 Abduction 173 External Rotation at 90 degrees 97 Abduction External Rotation at 0 degrees Abduction 75 Internal Rotation Behind Back (text) T12 Comments some discomfort w/rotations PT-OP-L Special Tests Start: 12/17/21 19:01 Freq: Status: Active Protocol: Document 12/21/21 09:44 [facility] (Rec: 12/21/21 12:23 [facility] [id number]) Special Tests Shoulder Special Tests Sulcus Test Results neg B Speed's Biceps Test Results neg L, pain R w/both obiens and speeds Neer Impingement Test Results positive R, neg L [place] Test Test Results neg L, pain R w/both obiens and speeds Goel Luisito Impingement Test Results positive R, neg L Empty Can Test Results neg L, pain R AC Joint Compression Test Results neg B PT-OP-M Strength Start: 12/17/21 19:01 Freq: Status: Active Protocol: Document 12/21/21 09:44 [facility] (Rec: 12/21/21 12:23 [facility] [id number]) Shoulder Strength Shoulder Manual Muscle Testing Right Flexion 4- Good- Extension 4 Good Abduction (C5) 4- Good- External Rotation 4- Good- Internal Rotation 4 Good Left Flexion 4 Good Extension 4 Good Abduction (C5) 4 Good External Rotation 4- Good- Internal Rotation 4+ Good+ PT-OP-T Assessment and Plan Start: 12/17/21 19:01 Freq: Status: Active Protocol: Document 04/01/22 16:53 [facility] (Rec: 04/01/22 16:54 [facility] [id number]) Physical Therapy Assessment Assessment Summary Assessment Pt cancelled last PT visits d/ t being at work fishing and d/ t soreness from injection. He did not call to schedule further visits and has not been seen for 3 months. DC d/t no longer attending PT Physical Therapy Plan Discharge Physical Therapy Discharge Reasons No Longer Attending PT
== END 2022-04-02 09:29 ==
LOC: PHYS 10:30
PROVIDERS: Family Provider Nurse Practitioner; PCP Nurse Practitioner; Referring Provider Nurse Practitioner; Visit Provider Nurse Practitioner
DX: M25.511 Pain in right shoulder (principal); M25.512 Pain in left shoulder; R53.1 Weakness; R29.3 Abnormal posture
CPT/HCPCS: 93010; 97110; 97140; 97162; 97535

== ENCOUNTER → 2022-01-22 16:13 | Outpatient (CLI) | payer OTHER, SELFPAY ==
--- NOTE | 2022-01-22 | DI.RAD.S_ITS ---
PROCEDURE: XR EYE FOREIGN BODY RT INDICATIONS: POSSIBLE METAL FROM WELDING TECHNIQUE: A single view of the orbits was acquired. COMPARISON: None. FINDINGS: Soft tissues: No metallic foreign bodies are visualized around the orbits. Bones: Bony structures appear unremarkable. Visualized sinuses appear clear. IMPRESSION: No radiopaque foreign bodies. Dictated by: Javier Mcrae M.D. on 01/22/2022 at 16:43 Approved by: Javier Mcrae M.D. on 01/22/2022 at 16:44
--- NOTE | 2022-01-22 | DI.MRI.S_ITS ---
PROCEDURE: MR SHOULDER RT WO CON INDICATIONS: RULE OUT RIGHT ROTATOR CUFF TEAR TECHNIQUE: Noncontrast oblique coronal T2 fast spin echo with fat saturation, oblique sagittal T1 spin echo and T2 fast spin echo with fat saturation, axial T1 spin echo and T2 fast spin echo with fat saturation through the shoulder. COMPARISON: None. FINDINGS: Image quality: Excellent. Rotator cuff: Tendinosis and low to moderate grade articular and bursal surface partial thickness tear involving distal supraspinatus at its insertion on the humeral head is seen extending to musculotendinous junction. Distal infraspinatus tendinosis is seen. Tendinosis and low-grade intrasubstance partial-thickness tear involving distal subscapularis is also noted. No full-thickness rotator cuff tendon rupture. Sagittal images demonstrate very mild supraspinatus muscle atrophy. Bones and bursae: There is marrow edema involving greater tuberosity of humeral head near rotator cuff tendon insertion. No discrete fracture line is seen. Moderate acromioclavicular joint osteoarthritic changes are seen with downward osteophyte formation depressing the musculotendinous junction of supraspinatus. Mild to moderate glenohumeral joint osteoarthritic changes also seen. There is small amount of joint effusion and subacromial subdeltoid bursal fluid. Capsule and soft tissues: There is signal abnormality and contour irregularity involving superior anterior labrum at 12 to 1 o'clock position. Similar signal abnormality and contour irregularity involving anterior inferior labrum at 4 to 6 o'clock position is also seen. The long head of the biceps tendinosis and low to moderate grade intrasubstance partial-thickness tear is noted. The rotator interval appears normal, without fibrosis. The coracohumeral ligament is normal in thickness. IMPRESSION: 1. Tendinosis and low to moderate grade articular and bursal surface partial thickness tear involving distal supraspinatus extending to musculotendinous junction. Distal infraspinatus and subscapularis tendinosis with low-grade intrasubstance partial-thickness tear involving distal subscapularis. No full-thickness rotator cuff tendon rupture. Very mild supraspinatus muscle atrophy. 2. Nonspecific marrow edema involving greater tuberosity of humeral head near rotator cuff tendon insertion without discrete fracture line. Moderate acromioclavicular joint osteoarthritis and [id number] glenohumeral joint osteoarthritis. 3. Suggestion of superior anterior labral tear at 12 to 1 o'clock position and anterior-inferior labral tear at 4 to 6 o'clock position. 4. Tendinosis and low to moderate grade intrasubstance partial-thickness tear involving proximal intra-articular portion of long head of biceps. Dictated by: Santo Killian M.D. on 01/25/2022 at 9:45 Approved by: Santo Killian M.D. on 01/25/2022 at 9:47
== END ==
PROVIDERS: Family Provider Nurse Practitioner; PCP Nurse Practitioner; Referring Provider Orthopaedic Surgery; Visit Provider Orthopaedic Surgery
DX: M75.111 Incomplete rotator cuff tear or rupture of right shoulder, not specified as traumatic (principal); M19.011 Primary osteoarthritis, right shoulder; Z01.89 Encounter for other specified special examinations
CPT/HCPCS: 70030; 73221

== ENCOUNTER → 2022-02-26 09:02 | Outpatient (CLI) | payer OTHER, SELFPAY ==
[2022-02-26 09:53] LABS: Cholesterol 202 mg/dL (140-199); HDL Cholesterol 103 mg/dL (40-60); LDL Cholesterol Calculated 83 mg/dL (<100); Triglycerides 80 mg/dL (35-150)
== END ==
PROVIDERS: Family Provider Nurse Practitioner; PCP Nurse Practitioner; Referring Provider Nurse Practitioner; Visit Provider Nurse Practitioner
DX: Z78.9 Other specified health status (principal); I10 Essential (primary) hypertension
CPT/HCPCS: 36415; 80061

== ENCOUNTER 2022-03-27 15:24 | Emergency (ER) | payer OTHER, SELFPAY ==
[2022-03-27] VITALS (7 sets, daily range): BP systolic 164–186; BP diastolic 90–105; PULSE 68–95; RESP 18; TEMP 36.5; O2SAT 97–99; BMI 20.2
--- NOTE | 2022-03-27 15:49 | ED_ITS ---
HPI - Psych <Bam Benz DO - Last Filed: 03/28/22 19:07> General Chief Complaint: Toxicology Problem Stated Complaint: PYCH ISSUES Time Seen by Provider: 03/27/22 15:29 Source: patient and family Mode of arrival: Ambulatory History of Present Illness HPI Narrative: 62-year-old male nonsmoker with history of alcohol abuse and bipolar disorder which has been untreated for upwards of 1 year. Been diagnosed years ago with bipolar and had previously been taking duloxetine and Depakote. He has not taken in quite some time because he does not like how it makes him feel and squash is his created juices. Per the it sounds like he routinely self medicates with alcohol and frequently in the spring of each year becomes incredibly manic. As of late he has not been sleeping, spending without regard to consequence and planning grandiose adventures, he stated he plan to climb [place] this morning. He denies any suicidal or homicidal ideations. States he is able to care for himself and does not think that he needs any significant assistance. Though he admits to 3 cores lytes per day his states that is significantly more than that his last drink was about 5 hours ago. He denies any history of alcohol detox or rehab. He denies any history of withdrawals, seizures or the like. Related Data Previous Rx's Medication Instructions Recorded duloxetine 60 mg capsule,delayed 60 mg PO DAILY #30 cap 12/16/21 release hydrochlorothiazide 25 mg tablet 25 mg PO DAILY #30 tab 12/16/21 lisinopril 10 mg tablet 10 mg PO DAILY #30 tab 12/16/21 Allergies Allergy/AdvReac Type Severity Reaction Status Date / Time No Known Drug Allergies Allergy Verified 03/28/22 18:27 Review of Systems <Bam Benz DO - Last Filed: 03/28/22 19:07> Review of Systems Narrative: GENERAL: Denies chills, fatigue, malaise, fever, sweats. HEENT: Denies sinus pain, ear pain, sore throat, difficulty swallowing, dizziness. RESPIRATORY: Denies dyspnea, cough, wheezing, hemoptysis, sputum. CARDIOVASCULAR: Denies chest pain, palpitations, orthopnea, edema, GASTROINTESTINAL: Denies nausea, vomiting, abdominal pain, diarrhea, constipation, melena. : Denies dysuria, frequency, incontinence, hematuria, urinary retention. MUSCULOSKELETAL: denies weakness, joint pain, or bony pain SKIN: Denies rash, skin lesions, or other NEUROLOGIC: Denies weakness, headache, numbness, change in speech, confusion, seizures, incoordination. PSYCHIATRIC: See HPI 12 point review of systems is negative except for those stated above Patient History <Bam Benz DO - Last Filed: 03/28/22 19:07> Medical History Colon cancer screening Hyperlipidemia LDL goal <100 Left elbow pain Strain of muscle(s) and tendon(s) of the rotator cuff of left shoulder, sequela Social History Smoking Status: Never smoker Smokeless tobacco user: chewing tobacco (Once in a while) Smoking Status: Never smoker alcohol intake frequency: 3 or more drinks per day Substance Use Type: marijuana Exam <Bam Benz DO - Last Filed: 03/28/22 19:07> Narrative Exam Narrative: GENERAL: [62 year old patient appears stated age. Well-developed patient, in mild distress. Some pressured speech and flight of ideas HEAD: Atraumatic. Normocephalic. EYES: Pupils equal round and reactive. Extraocular motions intact. No scleral icterus. No injection or drainage. ENT: Nose without bleeding, purulent drainage. Throat without erythema, tonsillar hypertrophy or exudate. Airway patent. NECK: Trachea midline. Non tender CARDIOVASCULAR: Regular rate and rhythm without murmurs, gallops, or rubs. RESPIRATORY: Clear to auscultation. Breath sounds equal bilaterally. No wheezes, rales, or rhonchi. GASTROINTESTINAL: Abdomen soft, non-tender, nondistended. EXTREMITIES: No edema or joint tenderness. BACK: Nontender without deformity or crepitance. No flank tenderness. NEURO: AOx3. SKIN: No rash or erythema of visible areas Initial Vital Signs Initial Vital Signs: Vital Signs Temperature 97.7 F 03/27/22 15:25 Pulse Rate 68 03/27/22 15:25 Respiratory Rate 18 03/27/22 15:25 Blood Pressure 164/90 H 03/27/22 15:25 Pulse Oximetry 98 03/27/22 15:25 <Refugio Riley DO - Last Filed: 03/28/22 06:45> Initial Vital Signs Initial Vital Signs: Vital Signs Temperature 97.7 F 03/27/22 15:25 Pulse Rate 68 03/27/22 15:25 Respiratory Rate 18 03/27/22 15:25 Blood Pressure 164/90 H 03/27/22 15:25 Pulse Oximetry 98 03/27/22 15:25 Course <Bam Benz, DO - Last Filed: 03/28/22 19:07> Course Course Narrative: Patient with history of untreated bipolar demonstrates evidence of significant ester and is unaware of the severity of his illness. He does not want or think he needs help. Family paints a largely different story and is my opinion based on their at the station that the patient is gravely disabled and will require hospitalization for initiation of therapy and stabilization of his illness. Orders Ordered: Discontinued Medications Duloxetine HCl (Duloxetine 30 Mg Capsule) 60 mg PO NOW ONE Stop: 03/28/22 10:31 Last Admin: 03/28/22 10:36 Dose: 60 mg Documented by: HARJEET Hydrochlorothiazide (Hydrochlorothiazide 25 Mg Tablet) 25 mg PO NOW ONE Stop: 03/28/22 10:24 Last Admin: 03/28/22 10:36 Dose: 25 mg Documented by: HARJEET Ibuprofen (Ibuprofen 400 Mg Tablet) 800 mg PO NOW ONE Stop: 03/28/22 12:13 Last Admin: 03/28/22 12:20 Dose: 800 mg Documented by: JIGNA Lisinopril (Lisinopril 10 Mg Tablet) 10 mg PO NOW ONE Stop: 03/28/22 10:24 Last Admin: 03/28/22 10:36 Dose: 10 mg Documented by: HARJEET Lorazepam (Lorazepam 2 Mg/Ml Inj) 1 mg IV NOW ONE Stop: 03/28/22 13:25 Last Admin: 03/28/22 13:29 Dose: 1 mg Documented by: JIGNA Vital Signs Vital signs: Vital Signs - 8 hr 03/28/22 12:31 03/28/22 12:32 03/28/22 13:21 Pulse Rate 96 H 89 97 H Respiratory Rate 14 Blood Pressure 205/114 H 205/114 H 194/106 H Pulse Oximetry 100 99 99 03/28/22 13:30 03/28/22 14:00 03/28/22 14:06 Pulse Rate 93 H 76 76 Respiratory Rate 12 Blood Pressure 140/79 Pulse Oximetry 99 95 98 03/28/22 14:30 03/28/22 15:00 03/28/22 15:30 Pulse Rate 75 75 70 Respiratory Rate Blood Pressure 134/87 136/81 138/86 Pulse Oximetry 97 94 95 03/28/22 16:00 03/28/22 16:30 03/28/22 18:06 Pulse Rate 67 92 H 100 H Respiratory Rate 18 Blood Pressure 133/83 174/98 H Pulse Oximetry 96 99 97 03/28/22 18:07 Pulse Rate 98 H Respiratory Rate 18 Blood Pressure 186/90 H Pulse Oximetry 97 <Refugio Riley DO - Last Filed: 03/28/22 06:45> Orders Ordered: Discontinued Medications Duloxetine HCl (Duloxetine 30 Mg Capsule) 60 mg PO NOW ONE Stop: 03/28/22 10:31 Last Admin: 03/28/22 10:36 Dose: 60 mg Documented by: HARJEET Hydrochlorothiazide (Hydrochlorothiazide 25 Mg Tablet) 25 mg PO NOW ONE Stop: 03/28/22 10:24 Last Admin: 03/28/22 10:36 Dose: 25 mg Documented by: HARJEET Ibuprofen (Ibuprofen 400 Mg Tablet) 800 mg PO NOW ONE Stop: 03/28/22 12:13 Last Admin: 03/28/22 12:20 Dose: 800 mg Documented by: JIGNA Lisinopril (Lisinopril 10 Mg Tablet) 10 mg PO NOW ONE Stop: 03/28/22 10:24 Last Admin: 03/28/22 10:36 Dose: 10 mg Documented by: HARJEET Lorazepam (Lorazepam 2 Mg/Ml Inj) 1 mg IV NOW ONE Stop: 03/28/22 13:25 Last Admin: 03/28/22 13:29 Dose: 1 mg Documented by: JIGNA Vital Signs Vital signs: Vital Signs - 8 hr 03/28/22 12:31 03/28/22 12:32 03/28/22 13:21 Pulse Rate 96 H 89 97 H Respiratory Rate 14 Blood Pressure 205/114 H 205/114 H 194/106 H Pulse Oximetry 100 99 99 03/28/22 13:30 03/28/22 14:00 03/28/22 14:06 Pulse Rate 93 H 76 76 Respiratory Rate 12 Blood Pressure 140/79 Pulse Oximetry 99 95 98 03/28/22 14:30 03/28/22 15:00 03/28/22 15:30 Pulse Rate 75 75 70 Respiratory Rate Blood Pressure 134/87 136/81 138/86 Pulse Oximetry 97 94 95 03/28/22 16:00 03/28/22 16:30 03/28/22 18:06 Pulse Rate 67 92 H 100 H Respiratory Rate 18 Blood Pressure 133/83 174/98 H Pulse Oximetry 96 99 97 03/28/22 18:07 Pulse Rate 98 H Respiratory Rate 18 Blood Pressure 186/90 H Pulse Oximetry 97 MDM - Psych <Bam Benz DO - Last Filed: 03/28/22 19:07> Lab Data Result diagrams: 03/27/22 15:45 03/27/22 15:45 Labs: Lab Results 03/27/22 03/27/22 03/27/22 Range/Units 15:45 15:45 15:45 WBC 5.9 (4.5-11.0) X10^3/uL RBC 4.08 L (4.5-5.9) X10^6/uL Hgb 13.7 (13.5-17.5) g/dL Hct 39.0 L (41-53) % MCV 95.6 (80-100) fL MCH 33.5 (26-34) PG MCHC 35.1 (30-36) % RDW 14.0 (11.6-14.8) % Plt Count 345 (150-400) X10^3/uL Neut % (Auto) 55.5 (50-75) % Lymph % (Auto) 29.5 (25-40) % [place] % (Auto) 11.9 (3-14) % Eos % (Auto) 2.2 (2-4) % Baso % (Auto) 0.9 (0-2) % Neut # (Auto) 3300 (3894-9743) /uL Lymph # (Auto) 1700 (8329-8051) /uL [place] # (Auto) 700 (0-900) /uL Eos # (Auto) 100 (0-450) /uL Baso # (Auto) 100 (0-100) /uL Sodium 138 (137-145) mmol/L Potassium 3.4 (3.4-5.1) mmol/L Chloride 103 (98-107) mmol/L Carbon Dioxide 26 (22-32) mmol/L BUN 10 (9-20) mg/dL Creatinine 0.73 (0.66-1.25) mg/dL Estimated GFR > 60 (>60) mL/min BUN/Creatinine Ratio 13.7 (6-22) Glucose 90 (80-110) mg/dL Calcium 9.4 (8.4-10.2) mg/dL Magnesium (1.6-2.3) mg/dL Total Bilirubin 0.6 (0.2-1.3) mg/dL AST 42 (17-59) IU/L ALT 37 (<50) IU/L Alkaline Phosphatase 80 (38-126) U/L Total Creatine Kinase (55-170) U/L Total Protein 7.4 (6.3-8.2) g/dL Albumin 4.8 (3.5-5.0) g/dL Globulin 2.6 (1.7-4.1) g/dL Albumin/Globulin Ratio 1.8 (1.0-2.8) TSH 1.56 (0.47-4.68) uIU/mL Urine Color Urine Appearance Urine pH (4.5-8.0) Ur Specific [place] (1.000-1.035) Urine Protein (Negative) Urine Glucose (UA) (Negative) g/dL Urine Ketones (NEGATIVE) Urine Occult Blood (Negative) Urine Nitrate (Negative) Urine Bilirubin (NEGATIVE) Urine Urobilinogen (0.2) E.U./dL Ur Leukocyte Esterase (NEGATIVE) Urine RBC (0-5/HPF) Urine WBC (0-5/HPF) Ur Squamous Epith Cells (0-5/HPF) Urine Bacteria (None) Ur Culture Indicated? Salicylates < 1.0 (<20) mg/dL U Opiates 300ng/mL cut (Negative) Ur Oxycodone Screen (Negative) Urine Methadone Screen (Negative) Acetaminophen < 10 (10-30) ug/mL Ur Barbiturates Screen (Negative) U Tricyclic Antidepress (Negative) Ur Phencyclidine Scrn (Negative) Ur Amphetamines Screen (Negative) U Methamphetamines Scrn (Negative) Ur MDMA Scrn (Ecstasy) (Negative) U Benzodiazepines Scrn (Negative) Urine Cocaine Screen (Negative) U Marijuana (THC) Screen (Negative) Ethyl Alcohol 145 H ( - 10) mg/dL SARS-CoV-2 (PCR) (Negative) 03/27/22 03/27/22 03/27/22 Range/Units 15:45 16:09 16:28 WBC (4.5-11.0) X10^3/uL RBC (4.5-5.9) X10^6/uL Hgb (13.5-17.5) g/dL Hct (41-53) % MCV (80-100) fL MCH (26-34) PG MCHC (30-36) % RDW (11.6-14.8) % Plt Count (150-400) X10^3/uL Neut % (Auto) (50-75) % Lymph % (Auto) (25-40) % [place] % (Auto) (3-14) % Eos % (Auto) (2-4) % Baso % (Auto) (0-2) % Neut # (Auto) (9616-8802) /uL Lymph # (Auto) (3231-3701) /uL [place] # (Auto) (0-900) /uL Eos # (Auto) (0-450) /uL Baso # (Auto) (0-100) /uL Sodium (137-145) mmol/L Potassium (3.4-5.1) mmol/L Chloride (98-107) mmol/L Carbon Dioxide (22-32) mmol/L BUN (9-20) mg/dL Creatinine (0.66-1.25) mg/dL Estimated GFR (>60) mL/min BUN/Creatinine Ratio (6-22) Glucose (80-110) mg/dL Calcium (8.4-10.2) mg/dL Magnesium 2.0 (1.6-2.3) mg/dL Total Bilirubin (0.2-1.3) mg/dL AST (17-59) IU/L ALT (<50) IU/L Alkaline Phosphatase (38-126) U/L Total Creatine Kinase 154 (55-170) U/L Total Protein (6.3-8.2) g/dL Albumin (3.5-5.0) g/dL Globulin (1.7-4.1) g/dL Albumin/Globulin Ratio (1.0-2.8) TSH (0.47-4.68) uIU/mL Urine Color Urine Appearance Urine pH (4.5-8.0) Ur Specific [place] (1.000-1.035) Urine Protein (Negative) Urine Glucose (UA) (Negative) g/dL Urine Ketones (NEGATIVE) Urine Occult Blood (Negative) Urine Nitrate (Negative) Urine Bilirubin (NEGATIVE) Urine Urobilinogen (0.2) E.U./dL Ur Leukocyte Esterase (NEGATIVE) Urine RBC (0-5/HPF) Urine WBC (0-5/HPF) Ur Squamous Epith Cells (0-5/HPF) Urine Bacteria (None) Ur Culture Indicated? Salicylates (<20) mg/dL U Opiates 300ng/mL cut Negative (Negative) Ur Oxycodone Screen Negative (Negative) Urine Methadone Screen Negative (Negative) Acetaminophen (10-30) ug/mL Ur Barbiturates Screen Negative (Negative) U Tricyclic Antidepress Negative (Negative) Ur Phencyclidine Scrn Negative (Negative) Ur Amphetamines Screen Negative (Negative) U Methamphetamines Scrn Negative (Negative) Ur MDMA Scrn (Ecstasy) Negative (Negative) U Benzodiazepines Scrn Negative (Negative) Urine Cocaine Screen Negative (Negative) U Marijuana (THC) Screen Positive H (Negative) Ethyl Alcohol ( - 10) mg/dL SARS-CoV-2 (PCR) Negative (Negative) 03/27/22 Range/Units 16:28 WBC (4.5-11.0) X10^3/uL RBC (4.5-5.9) X10^6/uL Hgb (13.5-17.5) g/dL Hct (41-53) % MCV (80-100) fL MCH (26-34) PG MCHC (30-36) % RDW (11.6-14.8) % Plt Count (150-400) X10^3/uL Neut % (Auto) (50-75) % Lymph % (Auto) (25-40) % [place] % (Auto) (3-14) % Eos % (Auto) (2-4) % Baso % (Auto) (0-2) % Neut # (Auto) (2158-3906) /uL Lymph # (Auto) (5698-5518) /uL [place] # (Auto) (0-900) /uL Eos # (Auto) (0-450) /uL Baso # (Auto) (0-100) /uL Sodium (137-145) mmol/L Potassium (3.4-5.1) mmol/L Chloride (98-107) mmol/L Carbon Dioxide (22-32) mmol/L BUN (9-20) mg/dL Creatinine (0.66-1.25) mg/dL Estimated GFR (>60) mL/min BUN/Creatinine Ratio (6-22) Glucose (80-110) mg/dL Calcium (8.4-10.2) mg/dL Magnesium (1.6-2.3) mg/dL Total Bilirubin (0.2-1.3) mg/dL AST (17-59) IU/L ALT (<50) IU/L Alkaline Phosphatase (38-126) U/L Total Creatine Kinase (55-170) U/L Total Protein (6.3-8.2) g/dL Albumin (3.5-5.0) g/dL Globulin (1.7-4.1) g/dL Albumin/Globulin Ratio (1.0-2.8) TSH (0.47-4.68) uIU/mL Urine Color Yellow Urine Appearance Clear Urine pH 6.5 (4.5-8.0) Ur Specific [place] <=1.005 (1.000-1.035) Urine Protein Negative (Negative) Urine Glucose (UA) Negative (Negative) g/dL Urine Ketones Negative (NEGATIVE) Urine Occult Blood Negative (Negative) Urine Nitrate Negative (Negative) Urine Bilirubin Negative (NEGATIVE) Urine Urobilinogen 0.2 (0.2) E.U./dL Ur Leukocyte Esterase Negative (NEGATIVE) Urine RBC None seen (0-5/HPF) Urine WBC None seen (0-5/HPF) Ur Squamous Epith Cells None seen (0-5/HPF) Urine Bacteria None seen (None) Ur Culture Indicated? Cult not indicated Salicylates (<20) mg/dL U Opiates 300ng/mL cut (Negative) Ur Oxycodone Screen (Negative) Urine Methadone Screen (Negative) Acetaminophen (10-30) ug/mL Ur Barbiturates Screen (Negative) U Tricyclic Antidepress (Negative) Ur Phencyclidine Scrn (Negative) Ur Amphetamines Screen (Negative) U Methamphetamines Scrn (Negative) Ur MDMA Scrn (Ecstasy) (Negative) U Benzodiazepines Scrn (Negative) Urine Cocaine Screen (Negative) U Marijuana (THC) Screen (Negative) Ethyl Alcohol ( - 10) mg/dL SARS-CoV-2 (PCR) (Negative) MDM Narrative Medical decision making narrative: Patient felt to be unaware of his active illness and is gravely disabled. He denies the desire or need for help. [employer] DAT[employer]ASE PROGRAMMER has seen and evaluated patient as well and we share the opinion that he will need hospitalized and DCR has been dispatched. Patient signed out to Dr. Riley for final disposition. Dr riley: Received turned over. It patient's history and physical exam. Patient is medically cleared. Was seen by DCR and after this discussion was determined to be voluntary. Social work did send information to area facilities and he is currently being reviewed for placement. He has been stable overnight. Care turned over to Dr. Benz to continue to eval and disposition. Patient placed at [facility] in [place]. He and family are made aware. <Refugio Riley, DO - Last Filed: 03/28/22 06:45> Lab Data Labs: Lab Results 03/27/22 03/27/22 03/27/22 Range/Units 15:45 15:45 15:45 WBC 5.9 (4.5-11.0) X10^3/uL RBC 4.08 L (4.5-5.9) X10^6/uL Hgb 13.7 (13.5-17.5) g/dL Hct 39.0 L (41-53) % MCV 95.6 (80-100) fL MCH 33.5 (26-34) PG MCHC 35.1 (30-36) % RDW 14.0 (11.6-14.8) % Plt Count 345 (150-400) X10^3/uL Neut % (Auto) 55.5 (50-75) % Lymph % (Auto) 29.5 (25-40) % [place] % (Auto) 11.9 (3-14) % Eos % (Auto) 2.2 (2-4) % Baso % (Auto) 0.9 (0-2) % Neut # (Auto) 3300 (4545-7858) /uL Lymph # (Auto) 1700 (1742-1529) /uL [place] # (Auto) 700 (0-900) /uL Eos # (Auto) 100 (0-450) /uL Baso # (Auto) 100 (0-100) /uL Sodium 138 (137-145) mmol/L Potassium 3.4 (3.4-5.1) mmol/L Chloride 103 (98-107) mmol/L Carbon Dioxide 26 (22-32) mmol/L BUN 10 (9-20) mg/dL Creatinine 0.73 (0.66-1.25) mg/dL Estimated GFR > 60 (>60) mL/min BUN/Creatinine Ratio 13.7 (6-22) Glucose 90 (80-110) mg/dL Calcium 9.4 (8.4-10.2) mg/dL Magnesium (1.6-2.3) mg/dL Total Bilirubin 0.6 (0.2-1.3) mg/dL AST 42 (17-59) IU/L ALT 37 (<50) IU/L Alkaline Phosphatase 80 (38-126) U/L Total Creatine Kinase (55-170) U/L Total Protein 7.4 (6.3-8.2) g/dL Albumin 4.8 (3.5-5.0) g/dL Globulin 2.6 (1.7-4.1) g/dL Albumin/Globulin Ratio 1.8 (1.0-2.8) TSH 1.56 (0.47-4.68) uIU/mL Urine Color Urine Appearance Urine pH (4.5-8.0) Ur Specific [place] (1.000-1.035) Urine Protein (Negative) Urine Glucose (UA) (Negative) g/dL Urine Ketones (NEGATIVE) Urine Occult Blood (Negative) Urine Nitrate (Negative) Urine Bilirubin (NEGATIVE) Urine Urobilinogen (0.2) E.U./dL Ur Leukocyte Esterase (NEGATIVE) Urine RBC (0-5/HPF) Urine WBC (0-5/HPF) Ur Squamous Epith Cells (0-5/HPF) Urine Bacteria (None) Ur Culture Indicated? Salicylates < 1.0 (<20) mg/dL U Opiates 300ng/mL cut (Negative) Ur Oxycodone Screen (Negative) Urine Methadone Screen (Negative) Acetaminophen < 10 (10-30) ug/mL Ur Barbiturates Screen (Negative) U Tricyclic Antidepress (Negative) Ur Phencyclidine Scrn (Negative) Ur Amphetamines Screen (Negative) U Methamphetamines Scrn (Negative) Ur MDMA Scrn (Ecstasy) (Negative) U Benzodiazepines Scrn (Negative) Urine Cocaine Screen (Negative) U Marijuana (THC) Screen (Negative) Ethyl Alcohol 145 H ( - 10) mg/dL SARS-CoV-2 (PCR) (Negative) 03/27/22 03/27/22 03/27/22 Range/Units 15:45 16:09 16:28 WBC (4.5-11.0) X10^3/uL RBC (4.5-5.9) X10^6/uL Hgb (13.5-17.5) g/dL Hct (41-53) % MCV (80-100) fL MCH (26-34) PG MCHC (30-36) % RDW (11.6-14.8) % Plt Count (150-400) X10^3/uL Neut % (Auto) (50-75) % Lymph % (Auto) (25-40) % [place] % (Auto) (3-14) % Eos % (Auto) (2-4) % Baso % (Auto) (0-2) % Neut # (Auto) (4208-4287) /uL Lymph # (Auto) (0197-8956) /uL [place] # (Auto) (0-900) /uL Eos # (Auto) (0-450) /uL Baso # (Auto) (0-100) /uL Sodium (137-145) mmol/L Potassium (3.4-5.1) mmol/L Chloride (98-107) mmol/L Carbon Dioxide (22-32) mmol/L BUN (9-20) mg/dL Creatinine (0.66-1.25) mg/dL Estimated GFR (>60) mL/min BUN/Creatinine Ratio (6-22) Glucose (80-110) mg/dL Calcium (8.4-10.2) mg/dL Magnesium 2.0 (1.6-2.3) mg/dL Total Bilirubin (0.2-1.3) mg/dL AST (17-59) IU/L ALT (<50) IU/L Alkaline Phosphatase (38-126) U/L Total Creatine Kinase 154 (55-170) U/L Total Protein (6.3-8.2) g/dL Albumin (3.5-5.0) g/dL Globulin (1.7-4.1) g/dL Albumin/Globulin Ratio (1.0-2.8) TSH (0.47-4.68) uIU/mL Urine Color Urine Appearance Urine pH (4.5-8.0) Ur Specific [place] (1.000-1.035) Urine Protein (Negative) Urine Glucose (UA) (Negative) g/dL Urine Ketones (NEGATIVE) Urine Occult Blood (Negative) Urine Nitrate (Negative) Urine Bilirubin (NEGATIVE) Urine Urobilinogen (0.2) E.U./dL Ur Leukocyte Esterase (NEGATIVE) Urine RBC (0-5/HPF) Urine WBC (0-5/HPF) Ur Squamous Epith Cells (0-5/HPF) Urine Bacteria (None) Ur Culture Indicated? Salicylates (<20) mg/dL U Opiates 300ng/mL cut Negative (Negative) Ur Oxycodone Screen Negative (Negative) Urine Methadone Screen Negative (Negative) Acetaminophen (10-30) ug/mL Ur Barbiturates Screen Negative (Negative) U Tricyclic Antidepress Negative (Negative) Ur Phencyclidine Scrn Negative (Negative) Ur Amphetamines Screen Negative (Negative) U Methamphetamines Scrn Negative (Negative) Ur MDMA Scrn (Ecstasy) Negative (Negative) U Benzodiazepines Scrn Negative (Negative) Urine Cocaine Screen Negative (Negative) U Marijuana (THC) Screen Positive H (Negative) Ethyl Alcohol ( - 10) mg/dL SARS-CoV-2 (PCR) Negative (Negative) 03/27/22 Range/Units 16:28 WBC (4.5-11.0) X10^3/uL RBC (4.5-5.9) X10^6/uL Hgb (13.5-17.5) g/dL Hct (41-53) % MCV (80-100) fL MCH (26-34) PG MCHC (30-36) % RDW (11.6-14.8) % Plt Count (150-400) X10^3/uL Neut % (Auto) (50-75) % Lymph % (Auto) (25-40) % [place] % (Auto) (3-14) % Eos % (Auto) (2-4) % Baso % (Auto) (0-2) % Neut # (Auto) (4081-8753) /uL Lymph # (Auto) (4806-0027) /uL [place] # (Auto) (0-900) /uL Eos # (Auto) (0-450) /uL Baso # (Auto) (0-100) /uL Sodium (137-145) mmol/L Potassium (3.4-5.1) mmol/L Chloride (98-107) mmol/L Carbon Dioxide (22-32) mmol/L BUN (9-20) mg/dL Creatinine (0.66-1.25) mg/dL Estimated GFR (>60) mL/min BUN/Creatinine Ratio (6-22) Glucose (80-110) mg/dL Calcium (8.4-10.2) mg/dL Magnesium (1.6-2.3) mg/dL Total Bilirubin (0.2-1.3) mg/dL AST (17-59) IU/L ALT (<50) IU/L Alkaline Phosphatase (38-126) U/L Total Creatine Kinase (55-170) U/L Total Protein (6.3-8.2) g/dL Albumin (3.5-5.0) g/dL Globulin (1.7-4.1) g/dL Albumin/Globulin Ratio (1.0-2.8) TSH (0.47-4.68) uIU/mL Urine Color Yellow Urine Appearance Clear Urine pH 6.5 (4.5-8.0) Ur Specific [place] <=1.005 (1.000-1.035) Urine Protein Negative (Negative) Urine Glucose (UA) Negative (Negative) g/dL Urine Ketones Negative (NEGATIVE) Urine Occult Blood Negative (Negative) Urine Nitrate Negative (Negative) Urine Bilirubin Negative (NEGATIVE) Urine Urobilinogen 0.2 (0.2) E.U./dL Ur Leukocyte Esterase Negative (NEGATIVE) Urine RBC None seen (0-5/HPF) Urine WBC None seen (0-5/HPF) Ur Squamous Epith Cells None seen (0-5/HPF) Urine Bacteria None seen (None) Ur Culture Indicated? Cult not indicated Salicylates (<20) mg/dL U Opiates 300ng/mL cut (Negative) Ur Oxycodone Screen (Negative) Urine Methadone Screen (Negative) Acetaminophen (10-30) ug/mL Ur Barbiturates Screen (Negative) U Tricyclic Antidepress (Negative) Ur Phencyclidine Scrn (Negative) Ur Amphetamines Screen (Negative) U Methamphetamines Scrn (Negative) Ur MDMA Scrn (Ecstasy) (Negative) U Benzodiazepines Scrn (Negative) Urine Cocaine Screen (Negative) U Marijuana (THC) Screen (Negative) Ethyl Alcohol ( - 10) mg/dL SARS-CoV-2 (PCR) (Negative) MDM Narrative Medical decision making narrative: Patient felt to be unaware of his active illness and is gravely disabled. He denies the desire or need for help. SQL DAT[employer]ASE PROGRAMMER has seen and evaluated patient as well and we share the opinion that he will need hospitalized and DCR has been dispatched. Patient signed out to Dr. Riley for final disposition. Dr riley: Received turned over. It patient's history and physical exam. Patient is medically cleared. Was seen by DCR and after this discussion was determined to be voluntary. Social work did send information to area facilities and he is currently being reviewed for placement. He has been stable overnight. Care turned over to Dr. Benz to continue to eval and disposition. Critical Care Time <Bam Benz, DO - Last Filed: 03/28/22 19:07> Critical Care Time Critical Care Time: Yes Total Critical Care Time: 45 Attestation: The high probability of a clinically significant, sudden or life threatening deterioration of the [Psych] system(s) required my full and direct attention, intervention and personal management. The aggregate critical care time was [45] minutes. This time is in addition to time spent performing reported procedures but includes the following: [x] Data Review and interpretation [x] Patient assessment and monitoring of vital signs [x] Documentation [x] Medication orders and management Discharge Plan Departure Patient Disposition: Xfer Psychiatric Hosp Clinical Impression: Bipolar 1 disorder Referrals: Jennifer Handy ARNP [Primary Care Provider] - Stand Alone Forms: Naloxone Standing Order [id number]
[2022-03-27 16:03] LABS: Add Manual Diff / Slide Review NO; Basophils Absolute Auto 100 /uL (0-100); Basophils Percent Auto 0.9 % (0-2); Eosinophils Absolute Auto 100 /uL (0-450); Eosinophils Percent Auto 2.2 % (2-4); Hemoglobin 13.7 g/dL (13.5-17.5); Lymphocytes Absolute Auto 1700 /uL (1100-4500); Lymphocytes Percent Auto 29.5 % (25-40); Mean Corpuscular HGB Conc 35.1 % (30-36); Mean Corpuscular Hemoglobin 33.5 PG (26-34); Mean Corpuscular Volume 95.6 fL (80-100); Monocytes Absolute Auto 700 /uL (0-900); Monocytes Percent Auto 11.9 % (3-14); Neutrophils Absolute Auto 3300 /uL (1500-7000); Neutrophils Percent Auto 55.5 % (50-75); Platelet Count 345 X10^3/uL (150-400); Red Blood Cell Count 4.08 X10^6/uL (4.5-5.9); White Blood Cell Count 5.9 X10^3/uL (4.5-11.0)
[2022-03-27 16:06] LABS: Acetaminophen < 10 ug/mL (10-30); Alanine Aminotransferase 37 IU/L (<50); Albumin 4.8 g/dL (3.5-5.0); Albumin Globulin Ratio 1.8 (1.0-2.8); Alkaline Phosphatase 80 U/L (38-126); Aspartate Aminotransferase 42 IU/L (17-59); BUN Creatinine Ratio 13.7 (6-22); Bilirubin Total 0.6 mg/dL (0.2-1.3); Blood Urea Nitrogen 10 mg/dL (9-20); Calcium 9.4 mg/dL (8.4-10.2); Carbon Dioxide 26 mmol/L (22-32); Chloride 103 mmol/L (98-107); Estimated Glomerular Filt Rate > 60 mL/min (>60); Ethanol (ETOH) 145 mg/dL; Globulin 2.6 g/dL (1.7-4.1); Glucose 90 mg/dL (80-110); HEMOLYSIS 21 (0-50); Potassium 3.4 mmol/L (3.4-5.1); Salicylate < 1.0 mg/dL (<20); Sodium 138 mmol/L (137-145); Total Protein 7.4 g/dL (6.3-8.2)
--- NOTE | 2022-03-27 16:41 | PC.NURSE ---
Addendum entered by Katelin Samuel R.N. 03/28/22 00:22: Patient appears to be resting comfortably. Used bed controls to lower head of bed independently. Also ambulates independently to bathroom. Addendum entered by Katelin Samuel R.N. 03/27/22 19:13: Went to open door to better visualize patient, patient got up and slammed door. Opened door again, patient was upset by this action demanding to know why. Notified patient that it was for his safety, patient told this RN to piss off. Original Note: Patient requested to use the bathroom to urinate, requested urine sample to which patient agreed. Patient stated that he knew where the restroom was and walked to it without difficult. 10 minutes later patient came out of the room asking is there a toilet?, which this RN stated yes, but you just went. Patient replied that he just peed in a cup. Directed patient back to same bathroom he had used 10 minutes prior. Patient was able to ambulate back to his room unassisted.
[2022-03-27 16:44] LABS: COVID19 -Nasal RAPID Negative (Negative)
[2022-03-27 16:53] LABS: UR Morphine/Opiate cutoff 300 Negative (Negative); Ur Creatinine Normal (Normal); Ur Specific Gravity Normal (Normal); Urine Amphetamines Negative (Negative); Urine Barbiturates Negative (Negative); Urine Benzodiazepines Negative (Negative); Urine Cocaine Negative (Negative); Urine MDMA Negative (Negative); Urine Methadone Negative (Negative); Urine Methamphetamines Negative (Negative); Urine Oxycodone Negative (Negative); Urine Phencyclidine Negative (Negative); Urine Tetrahydrocannabinol Positive (Negative); Urine Tricyclic Antidepressant Negative (Negative); Urine pH Normal (Normal)
[2022-03-27 16:58] LABS: TSH w/ Reflex to FT4 1.56 uIU/mL (0.47-4.68)
--- NOTE | 2022-03-27 16:58 | CM.SWNOTE ---
CNA HHA Assessment CNA HHA - Cloth Winding Supervisor Assessment CNA HHA/Cloth Winding Supervisor Assessment Time Spent with Patient Start date 03/27/22 Visit Start Time 16:15 End date 03/27/22 Visit End Time 14:30 Total time Care Management spent on 15 minutes patient visit-in minutes Mental Health Screening Include Onset, Duration, Intensity Presenting Problem Patient presents to ED with due to 's concern for patient's manic behavior. Patient is currently unmedicated with a dx of Bipolar Disorder. Patient endorses that he takes his medication regularly and denies concern other than lack of sleep. Patient endorses that he consumes alcohol daily. Precipitating Event(s) endorses that patient has been unmedicated for at least a year and has been presenting manic behaviors of lack of sleep, excessive spending, high sex drive, agitation and increased alcohol consumption in the last few weeks. Patient's states that patient is typically in a depressed state during the winter months and manic in the spring and summer months. Patient Strengths Patient has good supports. Current Behavioral Health Provider(s) Patient endorses he saw a [facility], Provider, Ph. # Psychiatrist in [place], cannot recall his name and last saw him 5 years ago. Psych. Hx Mental Health and Chemical Patient has hx of Bipolar Dependency disorder, and alcohol use. Patient has a positive toxicology for ETOH, BAL of 145 and positive for Marijuana. Family Hx of Behavioral Abuse Patient endorses his mother was Manic Depressive and his brother by suicide when he was 15 y/o. Psychiatric Hospitalizations (date(s)/ No hx location) Psychosocial information & Support Patient is 62 y/o male who Systems resides with and son in [place]. Patient has son, , and brother as supports School/Work [employer] Legal Concerns Legal Matters - Outstanding Issues None reported Mental Status Orientation (Person/Place/Time) A/O to person and self. Patient initially states he has been here before and knew where the bathroom is but 10 minutes later asked for where the bathroom is. Stated Mood good Affect (Congruent with Mood?) irritable, full range, stable, incongruent with mood Thought Content - Specify/Describe Patient denies visual Obsessions, Delusions, Hallucinations hallucinations, auditory hallucination and paranoia. Patient states that he is taking his medication regularly when his provides confirmation that he has not been taking his medication. Patient makes contradictory statements of I get 8 hours of sleep every night and I get 1 hour of sleep every other night. Thought Processes (Cyscvxk-Xnckervc-Oudv Pressured Glpbaitp-Csrgwezf-Gowsmcxzlt- Kfxoduxcvhzcvh-Zjwyysz-Bmmfigeyfhny- Thought Blocking) Speech (Lovfwh-Efob-Wptrofk-Rapid-Soft- Slow Loud-Pressured) Motor (Rfhrvf-Hmidgwcli-Ryhn-Other) normal, not formally assessed Insight (Vwxp-Hzzm-Xcml/Limited) poor Judgement (Pvov-Ysfc-Jxhm/Limited) poor Impulse Control (Adequate-Impaired) adequate during assessment Memory (Scpsaejjn-Yrijwj-Dgzdjy, Partially impaired, not Impaired-Intact) formally assessed. Patient presents with limitations in recalling information Concentration (Intact-Impaired) intact Attention (Intact-Impaired) intact Behavior (Appropriate-Inappropriate) appropriate Additional Comment Patient communicates with eyes closed as he states he is presenting to ED due to lack of sleep. Patient presents as calm when conversing with CNA HHA but agitated when conversing with . Patient presents as cooperative and communicative . Risk Assessment Suicidal Ideation (Plan) No Homicidal Ideation (Plan) No Intervention Intervention CNA HHA enters room to meet with patient. Present in room is patient's and patient agrees to meet with present. Patient denies concern for his MH and DING. Patient endorses his presentation to ED is regarding concern for his lack of sleep and need for medication. Per , patient has been unmedicated for his Bipolar dx for at least a year. Patient endorses that he has been taking medication regularly and denies any concerns regarding this. Patient endorses daily ETOH use of a couple drinks a day of beer for the last 25 years . Per , patient had intake appt with [facility] to address ETOH use and they recommended that patient address his mental illness prior to addressing ETOH use. Patient's endorses concern for patient's agitation, lack of sleep, ETOH use and concern with patient' s ability to function. Patient presents with statements that patient is working just fine, and denies any concern for his day to day life. It is the opinion of this CNA HHA that patient is in need of dual diagnosis BH inpatient hospitalization. It is the opinion of this CNA HHA that patient is lacking insight at this time to seek inpatient tx on a voluntary basis due to patient's grave disability. CNA HHA reviews the above with ED provider Dr. Benz who indicates agreement and understanding. Plan RA Plan CNA HHA to dispatch DCR for further assessment for MAX placement when patient is medically clear. Holly Ni MSW
[2022-03-27 16:59] LABS: Appearance Urine UA CLEAR; Bilirubin Urine UA NEGATIVE (NEGATIVE); Color Urine UA YELLOW; Glucose Urine UA NEGATIVE (Negative); Ketones Urine UA NEGATIVE (NEGATIVE); Leukocyte Esterase Urine UA NEGATIVE (NEGATIVE); Nitrite Urine UA NEGATIVE (Negative); Occult Blood Urine UA NEGATIVE (Negative); Protein Urine UA NEGATIVE (Negative); Specific Gravity Urine UA <=1.005 (1.000-1.035); Urobilinogen Urine UA 0.2 E.U./dL (0.2); pH Urine UA 6.5 (4.5-8.0)
[2022-03-27 17:04] LABS: Culture Indicated Urine Cult Not Indicated; RBC Urine None Seen (0-5/HPF); Squamous Epithelial Cell Urine None Seen (0-5/HPF); WBC Urine None Seen (0-5/HPF)
[2022-03-27 17:14] LABS: Bacteria Urine None Seen
--- NOTE | 2022-03-27 20:01 | CM.SWNOTE ---
Addendum entered by Holly Ni 03/27/22 20:25: [facility] reviewing patient but require pre authorization, STAFFING OPERATIONS MANAGER calls Adam line and leaves VM and faxes pre auth paperwork to [facility]. Moe DCR faxes clinical packet for review STAFFING OPERATIONS MANAGER calls [facility], it is reported they have beds and review patient. STAFFING OPERATIONS MANAGER faxes clinical packet for review. Plan: Continue to seek voluntary bed for patient. MAICO Villanueva Original Note: STAFFING OPERATIONS MANAGER Note Patient meets with YONI Lr and it is determined that patient is an appropriate candidate for voluntary inpatient hospitalization. Plan: STAFFING OPERATIONS MANAGER, DCR and ED staff to seek voluntary bed for patient. MAICO Villanueva
[2022-03-28] VITALS (16 sets, daily range): BP systolic 133–205; BP diastolic 79–114; PULSE 67–100; RESP 12–18; TEMP 37; O2SAT 94–100
[2022-03-28 02:49] LABS: Creatine Kinase 154 U/L (55-170)
--- NOTE | 2022-03-28 05:28 | PC.NURSE ---
Faxed requested documents to [facility]
--- NOTE | 2022-03-28 08:23 | PC.NURSE ---
0730: In to see patient. He is sitting on chair and reading book. Continues to read book during assessment, but stops to answer questions appropriately. Patient is currently here voluntarily and has seen YONI Rosa already. Patient requesting his morning medications, but does not remember the doses. He requested that we contact his to get the doses. He declines any visitors, except for his son at this time. He requests that we do not share any of his PHI with , except to get his home medication doses. Patient's brother, Gonzalo, and patient's here in lobby and requesting to come back. Informed them of patient's wishes. Patient's requesting to speak with YONI Rosa.
[2022-03-28] MEDS: DULOXETINE 30 MG CAPSULE 60 MG PO (10:36)
[2022-03-28] MEDS: lisinopriL 10 MG TABLET PO (10:36)
[2022-03-28] MEDS: hydroCHLOROthiazide 25 MG TABLET PO (10:36)
--- NOTE | 2022-03-28 10:52 | CM.SWNOTE ---
Addendum entered by MAICO Allen 03/28/22 14:31: ADD: Return call from Beka at [facility] stating their provider Dr. Valente has accepted pt with request of pt to arrive about 2100 with RN report number [phone] and address is [address] [place] [address] Rd. Nathaniel Fontana. MARTIN called ED [facility] [place] and updated and also spoke to program dir Kalee and updated and they will let RN and ED MD know as well and ED HEEL BLACKER set up BLS transport for around 1830 per [facility]. BF Addendum entered by MAICO Allen 03/28/22 13:42: ADD: Per Beka at [facility], presenting pt to their Provider but he feels they likely will decline as pt seems to be minimizing and not have insight into his own involvement in his mental health. Beka will call back with decision. MARTIN called [facility], they are about to review pt soon and will call with an answer. MARTIN called [facility], they currently still have some staffing/bed issues and are trying to move pts around to accommodate but likely will not know until this evening. BF Addendum entered by MAICO Allen 03/28/22 12:47: ADD: Return call from Gurdeep Case RN at [facility], stating that they feel pt is appropriate for re-eval from DCR for involuntary placement at this time and will await to see if DCR called or if bed still needed. Per ED RN, pt still on the phone with Anil at [facility] and will keep SW updated. BF Addendum entered by MAICO Allen 03/28/22 12:30: ADD: MARTIN received a call from Anil at [facility] and updated on pt status and Anil inquired if pt would be a good davon voluntary pt and states pt clinically looks appropriate to meet criteria but he needs to talk to pt prior to accepting. MARTIN updated ED RN and she kindly will help get pt on the phone with Anil at [phone] to determine if they will accept. BF Original Note: Per ED RN, pt has remained stable overnight with no signs of ETOH withdrawal and pt has been cooperative with care but still seems to be manic and has not slept but agreeable to take his morning meds and ED MD does not have any concerns with pt having ETOH withdrawals. ED RN kindly helping to determine if referrals last night/this morning to [facility] and [facility] have reviewed and can accept pt. [facility] intake is still stating their policy is for referring facility to get pre-auth prior to accepting and now state that their providers have concerns pt may begin withdrawals and if pt remains stable overnight they would be willing to re-review tomorrow 03/29/22. Per intake at [facility], they are having staffing issues and will try to determine if they can accept pt today at their facility and will call back. SW called following facilities as well: [facility]- currently full [facility]- Full [facility]- willing to review, provided pt information and faxed clinicals to review [facility]- have openings and wiling to review, provided pt info, and faxed clinicals to review. [facility]- willing to review, provided pt info, faxed clinicals to review. Plan: SW to follow closely for [facility], [facility], [facility], and [facility] review. MAICO Allen
[2022-03-28] MEDS: IBUPROFEN 400 MG TABLET 800 MG PO (12:20)
[2022-03-28] MEDS: LORazepam 2 MG/ML INJ 1 MG IV (13:29)
--- NOTE | 2022-03-28 14:02 | PC.NURSE ---
patient is resting.
--- NOTE | 2022-03-28 18:51 | PC.NURSE ---
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 I called his per his request, She states she took all of the cards. money , cell phone and licenses since he is psychotic. Informed patient and he asked me to have her bring them back to him. Ambulance is at bedside. is to bring back the items for him.
--- NOTE | 2022-03-28 19:22 | PC.NURSE ---
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 Items were given to patient and placed in his belongings bag to transport with him. Pt asked that I not share with his where he is transferring. He did wish to see his son, Ford, who was allowed back to room.
== END 2022-03-28 19:25 ==
PROVIDERS: Emergency Medicine; Emergency Provider Emergency Medicine; Family Provider Nurse Practitioner; PCP Nurse Practitioner
DX: F31.9 Bipolar disorder, unspecified (principal); R03.0 Elevated blood-pressure reading, without diagnosis of hypertension; Z20.822 Contact with and (suspected) exposure to COVID-19
CPT/HCPCS: 80053; 80305; 80320; 80329; 81001; 82550; 83735; 84443; 85025; 87635; 93005; 93010; 96374; 99284; 99291; C9803; G0480; J2060

== ENCOUNTER → 2022-06-15 08:34 | Outpatient (CLI) | payer OTHER, SELFPAY ==
[2022-06-15 10:19] LABS: Alanine Aminotransferase 44 IU/L (<50); Albumin 4.5 g/dL (3.5-5.0); Albumin Globulin Ratio 1.9 (1.0-2.8); Alkaline Phosphatase 47 U/L (38-126); Aspartate Aminotransferase 30 IU/L (17-59); BUN Creatinine Ratio 29.1 (6-22); Bilirubin Total 0.9 mg/dL (0.2-1.3); Blood Urea Nitrogen 30 mg/dL (9-20); Calcium 9.7 mg/dL (8.4-10.2); Carbon Dioxide 26 mmol/L (22-32); Chloride 99 mmol/L (98-107); Cholesterol 233 mg/dL (140-199); Estimated Glomerular Filt Rate > 60 mL/min (>60); Globulin 2.4 g/dL (1.7-4.1); Glucose 97 mg/dL (80-110); HDL Cholesterol 49 mg/dL (40-60); HEMOLYSIS < 15 (0-50); LDL Cholesterol Calculated 168 mg/dL (<100); Potassium 4.7 mmol/L (3.4-5.1); Sodium 136 mmol/L (137-145); Total Protein 6.9 g/dL (6.3-8.2); Triglycerides 82 mg/dL (35-150)
[2022-06-15 10:19] LABS: Creatinine Urine Random 225.8 mg/dL
[2022-06-15 10:26] LABS: Microalbumi Creatinin Ratio Ur 2.6 ug/mg CR (<30); Microalbumin Urine Random 0.6 mg/dL (0-1.6)
[2022-06-15 10:48] LABS: Free T3, Triiodothyronine Free 4.47 pg/mL (2.77-5.27); Free T4, Direct Thyroxine 1.03 ng/dL (0.78-2.19)
[2022-06-15 11:01] LABS: Thyroid Stimulating Hormone 1.46 uIU/mL (0.47-4.68)
== END ==
PROVIDERS: Family Provider Nurse Practitioner; PCP Nurse Practitioner; Referring Provider Nurse Practitioner; Visit Provider Nurse Practitioner
DX: E78.5 Hyperlipidemia, unspecified (principal); I10 Essential (primary) hypertension
CPT/HCPCS: 36415; 80053; 80061; 82043; 82570; 84439; 84443; 84481

== ENCOUNTER → 2022-06-22 11:59 | Outpatient (CLI) | payer OTHER, SELFPAY ==
[2022-06-22 12:52] LABS: Add Manual Diff / Slide Review NO; Basophils Absolute Auto 0 /uL (0-100); Basophils Percent Auto 0.7 % (0-2); Eosinophils Absolute Auto 0 /uL (0-450); Hematocrit 39.4 % (41-53); Hemoglobin 13.6 g/dL (13.5-17.5); Lymphocytes Absolute Auto 1300 /uL (1100-4500); Lymphocytes Percent Auto 30.4 % (25-40); Mean Corpuscular HGB Conc 34.5 % (30-36); Mean Corpuscular Hemoglobin 33.1 PG (26-34); Mean Corpuscular Volume 95.7 fL (80-100); Monocytes Absolute Auto 400 /uL (0-900); Monocytes Percent Auto 8.6 % (3-14); Neutrophils Absolute Auto 2400 /uL (1500-7000); Neutrophils Percent Auto 59.3 % (50-75); Platelet Count 320 X10^3/uL (150-400); Red Blood Cell Count 4.12 X10^6/uL (4.5-5.9); Red Cell Distribution Width 12.4 % (11.6-14.8); White Blood Cell Count 4.1 X10^3/uL (4.5-11.0)
[2022-06-24 20:04] LABS: Hep C Virus Ab w/Reflex Quant NEGATIVE s/c (NEGATIVE)
[2022-06-29 16:54] LABS: Percent Free Testosterone 1.06 % (1.50-4.20); Testosterone Free 5.92 ng/dL (5.00-21.00); Testosterone Total 558.8 ng/dL (264.0-916.0)
== END ==
PROVIDERS: Family Provider Nurse Practitioner; PCP Nurse Practitioner; Referring Provider Nurse Practitioner; Visit Provider Nurse Practitioner
DX: R53.83 Other fatigue (principal); Z11.59 Encounter for screening for other viral diseases
CPT/HCPCS: 36415; 84402; 84403; 85025; 86803

== ENCOUNTER → 2022-08-02 10:26 | Outpatient (CLI) | payer OTHER, SELFPAY ==
[2022-08-02 16:38] LABS: COVID19 -Nasal RAPID Negative (Negative)
== END ==
PROVIDERS: Family Provider Nurse Practitioner; PCP Nurse Practitioner; Visit Provider Surgery
DX: Z01.812 Encounter for preprocedural laboratory examination (principal); Z20.822 Contact with and (suspected) exposure to COVID-19
CPT/HCPCS: 87635; C9803

== ENCOUNTER 2022-08-03 07:26 | Day surgery (SDC) | payer OTHER, SELFPAY ==
[2022-08-03] VITALS (10 sets, daily range): BP systolic 80–122; BP diastolic 50–76; PULSE 47–78; RESP 14–20; TEMP 36.3–37.1; O2SAT 96–98; BMI 20.3
[2022-08-03] MEDS: LACTATED RINGERS 1,000 ML 200 ML IV ×2 (07:59→09:06)
--- NOTE | 2022-08-03 08:18 | PM.HP.1 ---
History of Present Illness History of Present Illness Date Patient Seen: 08/03/22 Time Patient Seen: 08:19 Chief complaint: SCREENING COLONOSCOPY Narrative: The patient presents for colorectal screening. They have never had any previous examination for such. No personal or family history of colon cancer. On further history denies any recent gastrointestinal symptoms. No nausea, vomiting, abdominal pain, loss of appetite, unexplained weight loss, change in bowel habits, diarrhea, constipation, melena, hematochezia, or bright red blood per rectum. Patient History Medical History Colon cancer screening Depression with anxiety Hyperlipidemia LDL goal <100 Insomnia Left elbow pain Strain of muscle(s) and tendon(s) of the rotator cuff of left shoulder, sequela Family & Social History Social History: household members spouse Tobacco & Substance use: Smoking Status Never smoker alcohol intake former alcohol intake frequency 3 or more drinks per day Substance Use Type does not use Meds Home Medications and Allergies Home Medications Medication Instructions Recorded Confirmed Type divalproex 500 mg tablet,delayed 500 mg PO BID #60 tabs 06/22/22 08/03/22 Rx release (Depakote) hydrochlorothiazide 25 mg tablet 25 mg PO DAILY #30 tabs 06/22/22 08/03/22 Rx lisinopril 10 mg tablet 10 mg PO DAILY #30 tabs 06/22/22 08/03/22 Rx ferrous sulfate 250 mg (50 mg 250 mg PO DAILY #90 tabs 06/30/22 08/03/22 Rx iron) tablet,extended release (Slow Release Iron) sodium,potassium,mag sulfates 17.5 See Rx Instructions PO .COMPLEX 07/19/22 08/03/22 Rx gram-3.13 gram-1.6 gram oral soln #354 mL (Suprep Bowel Prep Kit) Allergies Allergy/AdvReac Type Severity Reaction Status Date / Time No Known Drug Allergies Allergy Verified 06/22/22 11:04 Exam Vital Signs (past 8 hours): - 08/03/22 07:46 Temperature 98.6 F Pulse Rate 78 Respiratory Rate 20 Blood Pressure 122/76 Pulse Oximetry 97 Oxygen Delivery Method Room Air Oxygen Delivery Method Room Air Narrative Exam Narrative: General adult male alert oriented no acute distress Abdomen soft nontender nondistended Assessment & Plan Assessment & Plan narrative: The patient requires colorectal screening and colonoscopy is recommended. Technical details were discussed. Risks, benefits, alternatives explained. Risks including but not limited to myocardial infarction, aspiration, bleeding, pain, missed lesion, incomplete examination, need for further radiographic studies, colonic perforation, and need for major abdominal surgery were discussed. All questions were answered to their satisfaction, and they are in agreement with this plan. Time Spent With Patient Critical Care time: I spent a total of [] minutes of critical care time on this patient's care today; this time is exclusive of procedural time.
--- NOTE | 2022-08-03 08:19 | PM.OP.COLON ---
Operative Date/Time/Diagnoses Date of procedure: 08/03/22 Time of procedure: 08:19 Pre-op diagnosis: Screening colonoscopy Post-op diagnosis: same Procedure & Clinicians Study performed: Colonoscopy Same procedure as scheduled: Yes Indications: Screening Surgeon: Aston Maxwell Procedure Notes Procedure in detail: Medications: Conscious sedation using 5mg IV midazolam and 100mcg IV of fentanyl The history and physical was performed/updated and the patient is ASA class is 2. The procedure was discussed in detail with the patient. Potential risks complications including infection, bleeding, missed diagnosis, perforation, need for surgery, and were explained. Their questions were answered and informed consent was obtained. Patient was brought to the procedure room and placed standard monitoring equipment. The patient's vital signs were monitored continuously throughout the entire procedure. Prior to starting time-out was performed. The patient was placed in the left lateral recumbent position. Procedural sedation was administered. Examination began with a thorough inspection of the perianal area there was no evidence of fissures, fistulae, external hemorrhoids or cutaneous malignancy. The colonoscopy scope was then placed into the anal canal and was advanced to the cecum, which was identified by the ileocecal valve, the appendiceal orifice and the confluence of the taenia. The scope was then slowly withdrawn examining colon thoroughly in all directions, irrigating it of any residual stool. FINDINGS 1. No masses or polyps 2. Sigmoid colon mild diverticulosis The patient tolerated the procedure well. They will be discharged once criteria are met. The prep was of good/excellent quality. The withdrawl time was 9minutes. The sedation time was 17 minutes. Specimen(s): none sent Complications: none Impression: Normal colonoscopy Post-procedure Recommendations: Colonoscopy in 10 years and High fiber diet Disposition: same day surgery
[2022-08-03] MEDS: MIDAZOLAM 5 MG/5 ML VIAL IV (08:44)
[2022-08-03] MEDS: fentaNYL 100 MCG/2 ML INJ IV (08:44)
--- NOTE | 2022-08-03 09:16 | SUR.PHASEI ---
0915: Pt A&Ox4, denies any distress, BP hypotensive however asymptomatic. IVF continue. Handoff to JESSICA Cox who will continue to monitor until stable to discharge home. Updated son.
--- NOTE | 2022-08-03 09:45 | SUR.PREOP ---
Pt asymptomatic, vs shown to Dr. Maxwell. Pt ok to go home after IV infused if pt asymtomatic.
--- NOTE | 2022-08-03 10:36 | SUR.PHASEII ---
Pt left after IV infused, no symptoms of low BP despite reading, Dr. Alissa bonilla for d/c , pt left unit in stable condition.
== END 2022-08-03 10:20 | disposition home or self-care (01) ==
PROVIDERS: Family Provider Nurse Practitioner; PCP Nurse Practitioner; Referring Provider Surgery; Visit Provider Surgery
PROC: 0DJD8ZZ Inspection of Lower Intestinal Tract, Via Natural or Artificial Opening Endoscopic (ICD-10-PCS; CPT 45378; principal; 2022-08-03 08:30)
DX: Z12.11 Encounter for screening for malignant neoplasm of colon (principal); K57.30 Diverticulosis of large intestine without perforation or abscess without bleeding
CPT/HCPCS: 45378; 99152; J2250; J3010

== ENCOUNTER → 2022-12-28 13:25 | Outpatient (CLI) | payer OTHER, SELFPAY ==
[2022-12-28 14:47] LABS: Add Manual Diff / Slide Review NO; Basophils Absolute Auto 0 /uL (0-100); Basophils Percent Auto 0.7 % (0-2); Eosinophils Absolute Auto 100 /uL (0-450); Hematocrit 41.8 % (41-53); Hemoglobin 14.3 g/dL (13.5-17.5); Lymphocytes Absolute Auto 1900 /uL (1100-4500); Lymphocytes Percent Auto 30.9 % (25-40); Mean Corpuscular HGB Conc 34.2 % (30-36); Mean Corpuscular Hemoglobin 32.5 PG (26-34); Monocytes Absolute Auto 800 /uL (0-900); Monocytes Percent Auto 12.8 % (3-14); Neutrophils Absolute Auto 3300 /uL (1500-7000); Neutrophils Percent Auto 54.6 % (50-75); Platelet Count 341 X10^3/uL (150-400); Red Blood Cell Count 4.41 X10^6/uL (4.5-5.9); Red Cell Distribution Width 12.9 % (11.6-14.8)
== END ==
PROVIDERS: Family Provider Nurse Practitioner; PCP Nurse Practitioner; Referring Provider Nurse Practitioner; Visit Provider Nurse Practitioner
DX: D64.9 Anemia, unspecified (principal)
CPT/HCPCS: 36415; 85025

== ENCOUNTER → 2023-06-10 13:09 | Outpatient (CLI) | payer OTHER, SELFPAY ==
[2023-06-11 05:13] LABS: Valproic Acid (Depakene) Total 100 ug/mL (50-100)
== END ==
PROVIDERS: Family Provider Nurse Practitioner; PCP Nurse Practitioner; Referring Provider Psychiatry & Neurology Psychiatry; Visit Provider Psychiatry & Neurology Psychiatry
DX: Z79.899 Other long term (current) drug therapy (principal)
CPT/HCPCS: 36415; 80164

== ENCOUNTER → 2023-12-13 10:15 | Outpatient (CLI) | payer OTHER, SELFPAY ==
--- NOTE | 2023-12-13 10:17 | DI.RAD.S_ITS ---
PROCEDURE: XR CHEST 2V INDICATIONS: Cough x 10 days with O2 93 TECHNIQUE: 2 views of the chest were acquired. COMPARISON: None. FINDINGS: Surgical changes and devices: None. Lungs and pleura: Lungs are hyperexpanded. Subtle opacities at the medial right lung base. No pleural effusions or pneumothorax. Mediastinum: Mediastinal contours are normal. Heart size is normal. Bones and chest wall: No suspicious bony abnormalities. Soft tissues appear unremarkable. IMPRESSION: 1. Subtle opacities at the medial right lung base may be secondary to mild or early pneumonia versus atelectasis or aspiration. 2. Hyperexpanded lungs can be seen in the setting of COPD. Approved by: Anil Celaya M.D. on 12/13/2023 at 11:30
== END ==
LOC: RAD 10:17
PROVIDERS: Family Provider Nurse Practitioner; PCP Nurse Practitioner; Referring Provider Physician Assistant; Visit Provider Physician Assistant
DX: R05.9 Cough, unspecified (principal)
CPT/HCPCS: 71046

== ENCOUNTER → 2024-01-12 08:21 | Outpatient (CLI) | payer OTHER, SELFPAY ==
[2024-01-12 09:20] LABS: Add Manual Diff / Slide Review NO; Basophils Absolute Auto 0 /uL (0-100); Basophils Percent Auto 0.7 % (0-2); Eosinophils Absolute Auto 0 /uL (0-450); Eosinophils Percent Auto 0.7 % (2-4); Hematocrit 36.2 % (41-53); Hemoglobin 12.7 g/dL (13.5-17.5); Lymphocytes Absolute Auto 1300 /uL (1100-4500); Lymphocytes Percent Auto 22.6 % (25-40); Mean Corpuscular HGB Conc 35.1 % (30-36); Mean Corpuscular Hemoglobin 33.7 PG (26-34); Mean Corpuscular Volume 95.9 fL (80-100); Monocytes Absolute Auto 600 /uL (0-900); Monocytes Percent Auto 10.3 % (3-14); Neutrophils Absolute Auto 3600 /uL (1500-7000); Neutrophils Percent Auto 65.7 % (50-75); Platelet Count 340 X10^3/uL (150-400); Red Blood Cell Count 3.77 X10^6/uL (4.5-5.9); Red Cell Distribution Width 13.7 % (11.6-14.8); White Blood Cell Count 5.5 X10^3/uL (4.5-11.0)
[2024-01-12 09:40] LABS: Alanine Aminotransferase 31 IU/L (<50); Albumin 4.2 g/dL (3.5-5.0); Albumin Globulin Ratio 1.7 (1.0-2.8); Alkaline Phosphatase 53 U/L (38-126); Aspartate Aminotransferase 38 IU/L (17-59); BUN Creatinine Ratio 17.7 (6-22); Bilirubin Total 1.1 mg/dL (0.2-1.3); Blood Urea Nitrogen 14 mg/dL (9-20); Calcium 9.3 mg/dL (8.4-10.2); Carbon Dioxide 23 mmol/L (22-32); Chloride 96 mmol/L (98-107); Cholesterol 193 mg/dL (140-199); Estimated Glomerular Filt Rate > 60 mL/min (>60); Globulin 2.5 g/dL (1.7-4.1); Glucose 115 mg/dL (80-110); HDL Cholesterol 67 mg/dL (40-60); HEMOLYSIS < 15 (0-50); LDL Cholesterol Calculated 111 mg/dL (<100); Potassium 3.8 mmol/L (3.4-5.1); Sodium 130 mmol/L (137-145); Total Protein 6.7 g/dL (6.3-8.2); Triglycerides 77 mg/dL (35-150)
[2024-01-12 09:56] LABS: Creatinine Urine Random 113.3 mg/dL
[2024-01-12 10:08] LABS: Microalbumin Urine Random < 0.6 mg/dL (0-1.6)
[2024-01-12 10:42] LABS: Free T3, Triiodothyronine Free 4.15 pg/mL (2.77-5.27); Free T4, Direct Thyroxine 1.61 ng/dL (0.78-2.19)
[2024-01-12 10:56] LABS: Thyroid Stimulating Hormone 1.81 uIU/mL (0.47-4.68)
[2024-01-12 17:47] LABS: HIV 1 & 2 Ab/Ag 4th Gen Combo NEGATIVE (NEGATIVE)
== END ==
PROVIDERS: Family Provider Nurse Practitioner; PCP Nurse Practitioner; Referring Provider Nurse Practitioner; Visit Provider Nurse Practitioner
DX: Z00.00 Encounter for general adult medical examination without abnormal findings (principal); Z11.4 Encounter for screening for human immunodeficiency virus [HIV]; Z12.5 Encounter for screening for malignant neoplasm of prostate
CPT/HCPCS: 36415; 80053; 80061; 82043; 82570; 84439; 84443; 84481; 85025; 87389; G0103

== ENCOUNTER → 2024-01-24 15:39 | Outpatient (CLI) | payer OTHER, SELFPAY ==
[2024-01-24 16:57] LABS: Hemoglobin A1C% w Est Avg Glu 5.2 % (4.0-6.0)
== END ==
PROVIDERS: Family Provider Nurse Practitioner; PCP Nurse Practitioner; Referring Provider Nurse Practitioner; Visit Provider Nurse Practitioner
DX: R73.09 Other abnormal glucose (principal)
CPT/HCPCS: 36415; 83036

== ENCOUNTER → 2024-03-22 15:41 | Outpatient (CLI) | payer OTHER, SELFPAY ==
[2024-03-22 17:01] LABS: Add Manual Diff / Slide Review NO; Basophils Absolute Auto 0 /uL (0-100); Basophils Percent Auto 0.5 % (0-2); Eosinophils Absolute Auto 0 /uL (0-450); Eosinophils Percent Auto 0.1 % (2-4); Hematocrit 40.4 % (41-53); Hemoglobin 13.9 g/dL (13.5-17.5); Lymphocytes Absolute Auto 1800 /uL (1100-4500); Lymphocytes Percent Auto 24.1 % (25-40); Mean Corpuscular HGB Conc 34.5 % (30-36); Mean Corpuscular Hemoglobin 32.9 PG (26-34); Mean Corpuscular Volume 95.5 fL (80-100); Monocytes Absolute Auto 700 /uL (0-900); Monocytes Percent Auto 9.6 % (3-14); Neutrophils Absolute Auto 4900 /uL (1500-7000); Neutrophils Percent Auto 65.7 % (50-75); Platelet Count 360 X10^3/uL (150-400); Red Blood Cell Count 4.24 X10^6/uL (4.5-5.9); Red Cell Distribution Width 12.9 % (11.6-14.8); White Blood Cell Count 7.5 X10^3/uL (4.5-11.0)
[2024-03-22 17:40] LABS: HEMOLYSIS < 15 (0-50); Iron 104 ug/dL (49-181)
[2024-03-22 17:51] LABS: Percent Iron Saturation 35 % (20-50); Total Iron Binding Capacity 295 ug/dL (261-462); Transferrin 231 mg/dL (206-381)
[2024-03-22 18:33] LABS: Vitamin B12 778 pg/mL (239-931)
[2024-03-28 08:36] LABS: Percent Free Testosterone 1.87 % (1.50-4.20); Testosterone Free 9.47 ng/dL (5.00-21.00); Testosterone Total 506.5 ng/dL (264.0-916.0)
== END ==
PROVIDERS: Family Provider Nurse Practitioner; PCP Nurse Practitioner; Referring Provider Nurse Practitioner; Visit Provider Nurse Practitioner
DX: D64.9 Anemia, unspecified (principal); E29.1 Testicular hypofunction; R53.83 Other fatigue
CPT/HCPCS: 36415; 82607; 83540; 83550; 84402; 84403; 85025

== ENCOUNTER → 2024-04-25 07:15 | Outpatient (CLI) | payer OTHER, SELFPAY ==
[2024-04-25 08:45] LABS: Lithium 0.5 mmol/L (0.6-1.2)
[2024-04-26 06:08] LABS: Valproic Acid (Depakene) Total 57 ug/mL (50-100)
== END ==
PROVIDERS: Family Provider Nurse Practitioner; PCP Nurse Practitioner; Referring Provider Nurse Practitioner; Visit Provider Nurse Practitioner
DX: Z79.899 Other long term (current) drug therapy (principal); Z86.59 Personal history of other mental and behavioral disorders
CPT/HCPCS: 36415; 80164; 80178

== ENCOUNTER → 2024-05-22 16:04 | Outpatient (CLI) | payer OTHER, SELFPAY ==
[2024-05-22 17:05] LABS: Add Manual Diff / Slide Review NO; Basophils Absolute Auto 100 /uL (0-100); Basophils Percent Auto 0.8 % (0-2); Eosinophils Absolute Auto 100 /uL (0-450); Eosinophils Percent Auto 1.4 % (2-4); Hematocrit 36.4 % (41-53); Hemoglobin 12.6 g/dL (13.5-17.5); Lymphocytes Absolute Auto 2000 /uL (1100-4500); Lymphocytes Percent Auto 23.5 % (25-40); Mean Corpuscular HGB Conc 34.5 % (30-36); Mean Corpuscular Hemoglobin 34.1 PG (26-34); Mean Corpuscular Volume 98.9 fL (80-100); Monocytes Absolute Auto 900 /uL (0-900); Monocytes Percent Auto 10.4 % (3-14); Neutrophils Absolute Auto 5400 /uL (1500-7000); Neutrophils Percent Auto 63.9 % (50-75); Platelet Count 377 X10^3/uL (150-400); Red Blood Cell Count 3.68 X10^6/uL (4.5-5.9); Red Cell Distribution Width 13.9 % (11.6-14.8); White Blood Cell Count 8.5 X10^3/uL (4.5-11.0)
[2024-05-22 17:41] LABS: Alanine Aminotransferase 39 IU/L (<50); Albumin 4.1 g/dL (3.5-5.0); Albumin Globulin Ratio 1.8 (1.0-2.8); Alkaline Phosphatase 72 U/L (38-126); Aspartate Aminotransferase 32 IU/L (17-59); BUN Creatinine Ratio 23.6 (6-22); Bilirubin Total 0.6 mg/dL (0.2-1.3); Blood Urea Nitrogen 21 mg/dL (9-20); Calcium 9.4 mg/dL (8.4-10.2); Carbon Dioxide 25 mmol/L (22-32); Chloride 109 mmol/L (98-107); Estimated Glomerular Filt Rate > 60 mL/min (>60); Globulin 2.3 g/dL (1.7-4.1); Glucose 89 mg/dL (80-110); HEMOLYSIS < 15 (0-50); Potassium 3.5 mmol/L (3.4-5.1); Sodium 140 mmol/L (137-145); Total Protein 6.4 g/dL (6.3-8.2)
[2024-05-22 17:45] LABS: HEMOLYSIS < 15 (0-50); Iron 89 ug/dL (49-181); Lithium 0.7 mmol/L (0.6-1.2)
[2024-05-22 17:56] LABS: Percent Iron Saturation 30 % (20-50); Total Iron Binding Capacity 294 ug/dL (261-462); Transferrin 231 mg/dL (206-381)
[2024-05-22 18:03] LABS: Free T3, Triiodothyronine Free 3.59 pg/mL (2.77-5.27); Free T4, Direct Thyroxine 0.89 ng/dL (0.78-2.19)
[2024-05-22 18:16] LABS: Thyroid Stimulating Hormone 2.62 uIU/mL (0.47-4.68)
[2024-05-22 18:32] LABS: Vitamin B12 512 pg/mL (239-931)
[2024-05-24 08:10] LABS: Valproic Acid (Depakene) Total 52 ug/mL (50-100)
== END ==
PROVIDERS: Family Provider Nurse Practitioner; PCP Nurse Practitioner; Referring Provider Nurse Practitioner; Visit Provider Nurse Practitioner
DX: R53.83 Other fatigue (principal); D64.9 Anemia, unspecified; Z79.899 Other long term (current) drug therapy
CPT/HCPCS: 80053; 80164; 80178; 82607; 83540; 83550; 84439; 84443; 84481; 85025

== ENCOUNTER → 2024-06-08 11:22 | Outpatient (CLI) | payer OTHER, SELFPAY ==
[2024-06-08 15:04] LABS: Lithium 0.8 mmol/L (0.6-1.2)
[2024-06-09 03:39] LABS: Valproic Acid (Depakene) Total 42 ug/mL (50-100)
== END ==
PROVIDERS: Family Provider Nurse Practitioner; PCP Nurse Practitioner; Referring Provider Nurse Practitioner; Visit Provider Nurse Practitioner
DX: Z79.899 Other long term (current) drug therapy (principal)
CPT/HCPCS: 36415; 80164; 80178

== ENCOUNTER → 2024-09-05 11:24 | Outpatient (CLI) | payer OTHER, SELFPAY ==
[2024-09-05 12:42] LABS: Add Manual Diff / Slide Review NO; Basophils Absolute Auto 100 /uL (0-100); Basophils Percent Auto 1.3 % (0-2); Eosinophils Absolute Auto 400 /uL (0-450); Eosinophils Percent Auto 6.4 % (2-4); Hematocrit 39.9 % (41-53); Hemoglobin 13.5 g/dL (13.5-17.5); Lymphocytes Absolute Auto 1200 /uL (1100-4500); Lymphocytes Percent Auto 17.1 % (25-40); Mean Corpuscular HGB Conc 33.8 % (30-36); Mean Corpuscular Hemoglobin 32.5 PG (26-34); Mean Corpuscular Volume 96.2 fL (80-100); Monocytes Absolute Auto 600 /uL (0-900); Monocytes Percent Auto 9.1 % (3-14); Neutrophils Absolute Auto 4600 /uL (1500-7000); Neutrophils Percent Auto 66.1 % (50-75); Platelet Count 433 X10^3/uL (150-400); Red Blood Cell Count 4.15 X10^6/uL (4.5-5.9); Red Cell Distribution Width 13.5 % (11.6-14.8); White Blood Cell Count 6.9 X10^3/uL (4.5-11.0)
[2024-09-05 13:00] LABS: HEMOLYSIS < 15 (0-50); Iron 111 ug/dL (49-181)
[2024-09-05 13:05] LABS: Alanine Aminotransferase 15 IU/L (<50); Albumin 4.3 g/dL (3.5-5.0); Albumin Globulin Ratio 1.8 (1.0-2.8); Alkaline Phosphatase 71 U/L (38-126); Aspartate Aminotransferase 24 IU/L (17-59); BUN Creatinine Ratio 11.7 (6-22); Blood Urea Nitrogen 12 mg/dL (9-20); Calcium 9.5 mg/dL (8.4-10.2); Carbon Dioxide 26 mmol/L (22-32); Chloride 103 mmol/L (98-107); Cholesterol 199 mg/dL (140-199); Estimated Glomerular Filt Rate > 60 mL/min (>60); Globulin 2.4 g/dL (1.7-4.1); Glucose 101 mg/dL (80-110); HDL Cholesterol 51 mg/dL (40-60); HEMOLYSIS < 15 (0-50); LDL Cholesterol Calculated 137 mg/dL (<100); Potassium 4.1 mmol/L (3.4-5.1); Sodium 137 mmol/L (137-145); Total Protein 6.7 g/dL (6.3-8.2); Triglycerides 55 mg/dL (35-150)
[2024-09-05 13:11] LABS: Percent Iron Saturation 38 % (20-50); Total Iron Binding Capacity 291 ug/dL (261-462); Transferrin 223 mg/dL (206-381)
[2024-09-05 13:40] LABS: Ferritin 133 ng/mL (18-464)
[2024-09-05 13:56] LABS: Vitamin B12 301 pg/mL (239-931)
== END ==
PROVIDERS: Family Provider Nurse Practitioner; PCP Family Medicine; Referring Provider Family Medicine; Visit Provider Family Medicine
DX: E61.1 Iron deficiency (principal); E78.5 Hyperlipidemia, unspecified; Z82.49 Family history of ischemic heart disease and other diseases of the circulatory system; R43.2 Parageusia; D64.9 Anemia, unspecified; I10 Essential (primary) hypertension; R53.83 Other fatigue
CPT/HCPCS: 36415; 80053; 80061; 82607; 82728; 83540; 83550; 84630; 85025

== ENCOUNTER → 2024-10-09 10:23 | Outpatient (CLI) | payer OTHER, SELFPAY ==
--- NOTE | 2024-10-09 10:24 | DI.ECHO.S_ITS ---
[facility] : : [id number] : : [place] : : [id number] : : Phone: [phone] Echocardiogram Report + + :Name: ELMIRA BERNABE Study Date: 10/09/2024 Height: 72 in : :[facility] ReadingLocation: Weight: 148 lb : : Gender: Male BSA: 1.9 m2 : :: 1960 Age: 64 yrs BP: 157/91 mmHg: :Reason For Study: FAMILY HISTORY OF VALVULAR HEART DISEASE, : :HYPERTENSION : :Ordering Physician: INGRID, : :JULIA Cobb Performed By: Efrain Gonzales : :Referring: JULIA QUINTERO : + + Interpretation Summary The ejection fraction is estimated to be 55-60%. Diastolic parameters suggest probable normal left ventricular diastolic function and normal filling pressures. The right ventricle is normal in size and function. The right ventricular systolic pressure is estimated to be at least 33 mmHg based on an estimated right atrial pressure of 8 mm Hg. There is mild mitral regurgitation. Procedure: A two-dimensional transthoracic echocardiogram with color flow and Doppler was performed. The study quality was technically good. There is no prior echocardiogram noted for this patient. The patient was in normal sinus rhythm during the exam. Left Ventricle: The left ventricle is normal in size. There is normal left ventricular wall thickness. There is no ventricular septal defect visualized. The ejection fraction is estimated to be 55-60%. Left ventricular wall motion is normal. Diastolic parameters suggest probable normal left ventricular diastolic function and normal filling pressures. Right Ventricle: The right ventricle is normal in size and function. Atria: The left atrial size is normal. There is no Doppler evidence for an interatrial shunt. Mitral Valve: The mitral valve leaflets appear mildly thickened, but open well. There is mild mitral regurgitation. Aortic Valve: The aortic valve is trileaflet. The aortic valve opens well. No aortic regurgitation is present. Tricuspid Valve: The tricuspid valve is normal in structure and function. There is mild tricuspid regurgitation. The right ventricular systolic pressure is estimated to be at least 33 mmHg based on an estimated right atrial pressure of 8 mm Hg. Pulmonic Valve: The pulmonic valve is normal in structure and function. There is trace pulmonic regurgitation. Great Vessels: The aortic root is normal size. The dimensions of the ascending aorta are normal. The pulmonary artery is normal size. The IVC is dilated (diameter is greater than 2.1 cm) yet it collapses greater than 50% with a sniff. This suggests a right atrial pressure of 8 mm Hg. Pericardium/ Pleura There is no pericardial effusion. There is no pleural effusion. MMode/2D Measurements & Calculations LVIDd: 5.1 cm LVOT diam: 2.1 cm LVIDs: 3.4 cm Ao root diam: 3.3 cm FS: 34.1 % asc Aorta Diam: 3.2 cm EPSS: 0.53 cm IVSd: 0.71 cm LVPWd: 0.78 cm LV verdugo. diameter/BSA (cm/m^2): 2.7 LV sys. diameter/BSA (cm/m^2): 1.8 LA A2 area: 20.7 cm2 IVC diam: 2.3 cm LA A4 area: 17.3 cm2 LA length (vol): 5.2 cm LA vol: 58.1 ml LA vol index: 31.0 ml/m2 RVD1 (basal): 3.7 cm RVD2 (mid): 2.8 cm TAPSE: 2.9 cm Doppler Measurements & Calculations Ao V2 max: 112.0 cm/sec LVOT Max Alexander: 95.8 cm/sec Ao V2 mean: 81.4 cm/sec LV V1 max P.7 mmHg Ao max P.0 mmHg LV V1 VTI: 19.5 cm Ao mean P.9 mmHg BHAVANI(I,D): 2.5 cm2 Ao V2 VTI: 27.9 cm BHAVANI(V,D): 3.0 cm2 sev ratio: 0.70 BHAVANI indexed to BSA (cm^2/m^2): 1.3 MV E max alexander: 75.9 cm/sec TR max alexander: 249.7 cm/sec MV A max alexander: 36.7 cm/sec TR max P.9 mmHg MV E/A: 2.1 PA V2 max: 63.0 cm/sec Med Peak E' Alexander: 7.1 cm/sec PA V2 mean: 47.3 cm/sec E/E' med: 10.7 PA mean P.96 mmHg Lat Peak E' Alexander: 7.8 cm/sec PA pr(Accel): 8.8 mmHg E/E' lat: 9.7 E/e' average: 10.2 MV dec time: 0.25 sec MR ERO: 0.17 cm2 MR PISA: 2.0 cm2 SV(LVOT): 69.3 ml MR flow rate: 73.9 cm3/sec MR PISA radius: 0.56 cm Reading Physician:FLY
== END ==
PROVIDERS: Family Provider Nurse Practitioner; PCP Family Medicine; Referring Provider Family Medicine; Visit Provider Family Medicine
DX: I08.1 Rheumatic disorders of both mitral and tricuspid valves (principal); I10 Essential (primary) hypertension; Z82.49 Family history of ischemic heart disease and other diseases of the circulatory system
CPT/HCPCS: 93306

== ENCOUNTER → 2024-11-22 12:07 | Outpatient (CLI) | payer OTHER, SELFPAY ==
[2024-11-22 13:43] LABS: Add Manual Diff / Slide Review NO; Basophils Absolute Auto 100 /uL (0-100); Basophils Percent Auto 1.1 % (0-2); Eosinophils Absolute Auto 200 /uL (0-450); Eosinophils Percent Auto 2.9 % (2-4); Hematocrit 43.3 % (41-53); Hemoglobin 14.5 g/dL (13.5-17.5); Lymphocytes Absolute Auto 1200 /uL (1100-4500); Lymphocytes Percent Auto 22.1 % (25-40); Mean Corpuscular HGB Conc 33.5 % (30-36); Mean Corpuscular Hemoglobin 32.8 PG (26-34); Monocytes Absolute Auto 500 /uL (0-900); Monocytes Percent Auto 9.7 % (3-14); Neutrophils Absolute Auto 3600 /uL (1500-7000); Neutrophils Percent Auto 64.2 % (50-75); Platelet Count 390 X10^3/uL (150-400); Red Blood Cell Count 4.42 X10^6/uL (4.5-5.9); Red Cell Distribution Width 13.2 % (11.6-14.8); White Blood Cell Count 5.5 X10^3/uL (4.5-11.0)
== END ==
PROVIDERS: Family Provider Nurse Practitioner; PCP Family Medicine; Referring Provider Family Medicine; Visit Provider Family Medicine
DX: E61.1 Iron deficiency (principal); Z79.899 Other long term (current) drug therapy
CPT/HCPCS: 36415; 85025

== ENCOUNTER → 2025-08-23 10:59 | Outpatient (CLI) | payer MEDICARE, OTHER, SELFPAY ==
[2025-08-23 13:23] LABS: Alanine Aminotransferase 17 IU/L (<50); Albumin 4.3 g/dL (3.5-5.0); Albumin Globulin Ratio 2.3 (1.0-2.8); Alkaline Phosphatase 57 U/L (38-126); Blood Urea Nitrogen 17 mg/dL (9-20); Calcium 9.4 mg/dL (8.4-10.2); Carbon Dioxide 25 mmol/L (22-32); Chloride 102 mmol/L (98-107); Cholesterol 189 mg/dL (140-199); Estimated Glomerular Filt Rate > 60 mL/min (>60); Globulin 1.9 g/dL (1.7-4.1); Glucose 87 mg/dL (70-99); HDL Cholesterol 65 mg/dL (40-60); HEMOLYSIS < 15 (0-50); Potassium 4.3 mmol/L (3.4-5.1); Sodium 136 mmol/L (137-145); Total Protein 6.2 g/dL (6.3-8.2); Triglycerides 69 mg/dL (35-150)
== END ==
PROVIDERS: Family Provider Nurse Practitioner; PCP Family Medicine; Referring Provider Family Medicine; Visit Provider Family Medicine
DX: E78.5 Hyperlipidemia, unspecified (principal); F31.9 Bipolar disorder, unspecified
CPT/HCPCS: 36415; 80053; 80061